=== PATIENT | male | born 1940 | race Caucasian/White ===

== ENCOUNTER → 2016-12-22 | Outpatient (CLI) | payer OTHER, MEDICARE | LOC: MW.RT 19:49 | CPT/HCPCS: 95810 ==

== ENCOUNTER 2017-06-01 21:16 | Inpatient (IN) | payer MEDICARE, OTHER ==
[2017-06-01] MEDS ORDERED: Sodium Chloride 0.9% 2.5 ML Syringe FLUSH PRN (21:25)
[2017-06-01] MEDS ORDERED: Sodium Chloride 0.9% 10 ML Syringe FLUSH PRN (21:25)
[2017-06-01] MEDS ORDERED: Sodium Chloride 0.9% 1,000 ML IV ONE (21:25)
--- NOTE | 2017-06-01 21:31 | EDM.PDOC ---
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 The patient lives at home alone and according to EMS his home was very unkempt. The patient states he takes his blood sugar 4 times a day and it was running a little on the lower side today but he has been eating normally without vomiting or diarrhea. He has not had fever chills cough chest pain shortness of breath abdominal pain or any systemic complaints until this afternoon with the lightheadedness. He did not pass out or blackout he did not hit his head and has no extremity pain. He has no focal weakness but has generalized weakness. 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 He says he has been drinking fluids but he might not have been doing as well as he thinks because he feels somewhat dehydrated. EMS started an IV and was giving him IV fluids and his blood pressure initially was 69/51 but after 500 mL it was already coming up to the 80s. His Accu-Chek was 69 per EMS and it was low for him so he ate some food. Initially the patient did not want to come via EMS but when his blood sugar was on the lower side and his blood pressure was low he decided to come in. He does not have any home health or support services at home per EMS and the patient. Currently in the ED he denies any complaints other than generalized weakness and feeling somewhat lightheaded. The patient has been on chemotherapy proximally 6 months. Review of systems: As per history of present illness and below otherwise all systems reviewed and negative. Past medical history: As per history of present illness and as reviewed below otherwise noncontributory. Surgical history: As per history of present illness and as reviewed below otherwise noncontributory. Social history: No reported history of drug or alcohol abuse. Family history: As per history of present illness and as reviewed below otherwise noncontributory. Physical exam: Gen.: Well-developed thin man who is nontoxic and somewhat pale appearing but speaks clearly and easily and is in no overt distress. HEENT: Atraumatic, normocephalic, pupils reactive, negative for scleral icterus , conjunctiva are slightly pale mucous membranes dry, throat clear, neck supple , nontender, trachea midline. Lungs: Clear to auscultation, breath sounds equal bilaterally, chest nontender. Heart: S1S2, regular, negative for clicks, rubs, or JVD. Abdomen: Soft, nondistended, nontender. Negative for masses or hepatosplenomegaly. Negative for costovertebral tenderness. Pelvis: Stable nontender. Genitourinary: Deferred. Rectal: Deferred. Extremities: Atraumatic, negative for cords or calf pain. Neurovascular unremarkable. Bilateral AKA's are seen with well-healed scars. Neuro: Awake, alert, oriented. Cranial nerves II through XII unremarkable. Motor and sensory unremarkable throughout. Exam nonfocal. Skin: Turgor slightly diminished and there are chronic skin changes on his forearms but there are no overt rashes or lesions. There are some scab seen from old injuries but nothing new. Diagnostics: EKG CBC CMP lactic acid UA urine culture blood cultures troponin CPK chest x-ray Therapeutics: IV O2 monitor IV fluids D50 2207: Accu-Chek was repeated by staff and it was 41. Patient will be given and amp D50 [id number]: Patient was unable to urinate as he did not feel the urge. He has received 1800 mL of IV fluids and pressure is in the 70s. The patient was cathed by nursing and he only produces 15 sees of urine. We will continue to fluid resuscitate him. Case was discussed with our hospitalist Dr. Freire who agrees with continuing with fluid resuscitation and agrees with my suggestion to start low-dose dopamine. He is aware of the antibiotics and I will follow-up the UA results. The patient is agreeable for admission and he will go to the ICU. The patient has a port as well as a peripheral line for good IV access Critical care time excluding procedures:31min Impression: Dehydration with hypotension, rule out sepsis, history of chemotherapy and diabetes, hypoglycemia improving Definitive disposition and diagnosis as appropriate pending reevaluation and review of above. Chronic Back Pain Pain Score (Numeric/FACES): 6 - Related Data Allergies Allergy/AdvReac Type Severity Reaction Status Date / Time codeine Allergy Intermediate Confusion Verified 06/01/17 21:32 cologne Allergy Other Uncoded 06/01/17 21:32 Hayfever Allergy Other Uncoded 06/01/17 21:32 Home Meds: Home Meds Acetaminophen [Masophen] 500 mg PO QID 12/11/14 [History] Aspirin 325 mg PO DAILY 12/11/14 [History] Gabapentin [Neurontin] 600 mg PO QID 12/11/14 [History] traMADol [Ultram] 50 mg PO QID 12/11/14 [History] Cyanocobalamin (Vitamin B-12) [Vitamin B-12] 1 injection IM ASDIRECTED 01/14/15 [History] Docusate Sodium [Colace] 500 mg PO BID 01/14/15 [History] Multivitamin [Multivitamins] 1 tab PO DAILY 01/14/15 [History] Sertraline [Zoloft] 50 mg PO DAILY 01/14/15 [History] Iron 65 mg PO BID 06/22/16 [History] Vit C/Dietary Combo NO.18 [Red Wine Extract Plus] 1,000 mg PO BID 06/22/16 [ History] Fluticasone Propionate [Flonase Allergy Relief] 1 dose NASBOTH ASDIRECTED PRN [History] Urea 1 applic TOP ASDIRECTED 08/26/16 [History] Insulin Aspart Protam & Aspart [Novolog Mix 70-30 Flexpen Syrn] 1 injection PERCUT ASDIRECTED 11/05/16 [History] Lisinopril 5 mg PO DAILY 11/05/16 [History] Past Medical History HEENT History: Reports: Cataract, Hard of Hearing Other HEENT History: wears glasses, has bilateral hearing aides Cardiovascular History: Reports: Angina Other Cardiovascular History: denies chest pain and SOB Respiratory History: Reports: COPD, Sleep Apnea Other Respiratory History: not currently using CPAP Gastrointestinal History: Reports: GERD, Hiatal Hernia Other Gastrointestinal History: Chronic Heartburn ("used to take Nexium, quit working so I stopped") Genitourinary History: Reports: BPH, UTI, Recurrent Other Genitourinary History: Enlarged prostate Musculoskeletal History: Reports: Back Pain, Chronic, Fracture Other Musculoskeletal History: hx of fx right arm and left shoulder/ clavicle Neurological History: Reports: Concussion Other Neuro History: 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 Psychiatric History: Reports: Anxiety, Depression Endocrine/Metabolic History: Reports: Diabetes, Type II Hematologic History: Reports: Anemia, Blood Transfusion(s) Other Hematologic History: easy bruising/bleeding Immunologic History: Reports: None Other Immunologic History: Positive MRSA Oncologic (Cancer) History: Reports: Leukemia, Other (See Below) Other Oncologic History: removal of skin cancer on forehead x2, "possible leukemia" Dermatologic History: Reports: Other (See Below) Other Dermatologic History: has dry skin, "pimple like sores to stumps and buttocks" not open or draining, states he "thinks he has MRSA" as he has had nasal swab in the past and was told it was positive - Infectious Disease History Infectious Disease History: Reports: MRSA - Past Surgical History Cardiovascular Surgical History: Reports: Coronary Artery Stent GI Surgical History: Reports: Other (See Below) Neurological Surgical History: Reports: Other (See Below) Social & Family History - Family History Family Medical History: Noncontributory Cardiac: Reports: None - Tobacco Use Smoking Status *Q: Former Smoker Years of Tobacco use: 37 Used Tobacco, but Quit: Yes Month Tobacco Last Used: quit smoking Aug 27, 1997 Second Hand Smoke Exposure: No - Alcohol Use Days Per Week of Alcohol Use: 0 Number of Drinks Per Day: 0 Total Drinks Per Week: 0 - Recreational Drug Use Recreational Drug Use: No Drug Use in Last 12 Months: No ED ROS GENERAL - Review of Systems Review Of Systems: ROS reveals no pertinent complaints other than HPI. ED EXAM, GENERAL - Physical Exam Exam: See Below (See dictation) Course - Vital Signs Last Recorded V/S: Last Vital Signs Temp 36.1 C 06/01/17 21:16 Pulse 98 06/01/17 22:39 Resp 16 06/01/17 22:39 BP 74/39 L 06/01/17 22:39 Pulse Ox 98 06/01/17 22:39 - Orders/Labs/Meds Orders: Active Orders 24 hr Category Date Time Status Blood Glucose Check, Bedside [RC] ONETIME Care 06/01/17 21:24 Active Cardiac Monitoring [RC] . DIRECTED Care 06/01/17 21:23 Active Communication Order [RC] STAT Care 06/01/17 21:25 Active EKG Documentation Completion [RC] STAT Care 06/01/17 21:23 Active Implanted Port Access [RC] DAILY Care 06/01/17 21:53 Active Oxygen Therapy, ED [RC] ASDIRECTED Care 06/01/17 21:23 Active Pulse Oximetry [RC] ASDIRECTED Care 06/01/17 21:23 Active Chest 1V Frontal [CR] Stat Exams 06/01/17 21:25 Taken CULTURE BLOOD [BC] Stat Lab 06/01/17 21:42 Received CULTURE BLOOD [BC] Stat Lab 06/01/17 22:07 Received CULTURE URINE [RM] Stat Lab 06/01/17 21:24 Uncollected UA W/MICROSCOPIC [URIN] Stat Lab 06/01/17 21:24 Uncollected Piperacillin/Tazobactam [Piperacil-Tazobact] 3.375 gm Med 06/01/17 22:55 Active Sodium Chloride 0.9% [Normal Saline] 50 ml IV ONETIME Sodium Chloride 0.9% [Normal Saline] 1,000 ml Med 06/01/17 22:45 Active IV ASDIRECTED Sodium Chloride 0.9% [Saline Flush] Med 06/01/17 21:25 Active 10 ml FLUSH ASDIRECTED PRN Sodium Chloride 0.9% [Saline Flush] Med 06/01/17 21:25 Active 2.5 ml FLUSH ASDIRECTED PRN Blood Culture x2 Reflex Set [OM.PC] Stat Oth 06/01/17 21:24 Ordered Saline Lock Insert [OM.PC] Stat Oth 06/01/17 21:23 Ordered Medication Orders Piperacillin Sod/Tazobactam (Sod 3.375 gm/ Sodium Chloride) 50 mls @ 100 mls/ hr IV ONETIME ONE Stop: 06/01/17 23:24 Sodium Chloride (Normal Saline) 1,000 mls @ 999 mls/hr IV ASDIRECTED JEWELL Last Admin: 06/01/17 22:45 Dose: 999 mls/hr Sodium Chloride (Saline Flush) 10 ml FLUSH ASDIRECTED PRN PRN Reason: Keep Vein Open Sodium Chloride (Saline Flush) 2.5 ml FLUSH ASDIRECTED PRN PRN Reason: Keep Vein Open Labs: Laboratory Tests 07/25/17 07/25/17 07/25/17 Range/Units 21:42 21:42 21:42 WBC 5.84 (4.0-11.0) K/uL RBC 2.69 L (4.50-5.90) M/uL Hgb 9.6 L (13.0-17.0) g/dL Hct 30.7 L (38.0-50.0) % MCV 114.1 H (80.0-98.0) fL MCH 35.7 H (27.0-32.0) pg MCHC 31.3 (31.0-37.0) g/dL RDW Std Deviation 65.4 H (28.0-62.0) fl RDW Coeff of Matt 16 H (11.0-15.0) % Plt Count 389 (150-400) K/uL MPV 10.90 (7.40-12.00) fL Add Manual Diff YES Neutrophils % (Manual) 68 (48.0-80.0) % Band Neutrophils % 10 % Lymphocytes % (Manual) 16 (16.0-40.0) % Monocytes % (Manual) 6 (0.0-15.0) % Nucleated RBC % 0.0 /100WBC Absolute Seg Neuts 4.0 Band Neutrophils # 0.6 Lymphocytes # (Manual) 0.9 Monocytes # (Manual) 0.4 Nucleated RBCs # 0 K/uL Lactate 2.9 H (0.20-2.00) mmol/L Sodium 144 (136-146) mmol/L Potassium 3.9 (3.5-5.1) mmol/L Chloride 108 (98-110) mmol/L Carbon Dioxide 24 (21-31) mmol/L BUN 16 (6.0-23.0) mg/dL Creatinine 1.0 (0.6-1.5) mg/dL Est Cr Clr Drug Dosing TNP Estimated GFR (MDRD) > 60.0 ml/min Glucose 69 (60-110) mg/dL POC Glucose (60-110) mg/dL Calcium 9.0 (8.8-10.8) mg/dL Total Bilirubin 0.3 (0.1-1.5) mg/dL AST 20 (5-40) IU/L ALT 24 (8-54) IU/L Alkaline Phosphatase 103 (40-150) Creatine Kinase 91 (9-236) IU/L Troponin I (0.0-0.29) NG/ML Total Protein 6.9 (6.0-8.0) g/dL Albumin 3.5 (3.4-4.8) g/dL Globulin 3.4 (2.0-3.5) g/dL Albumin/Globulin Ratio 1.0 L (1.3-2.8) Blood Type Antibody Screen 06/01/17 06/01/17 06/01/17 Range/Units 21:42 21:42 22:07 WBC (4.0-11.0) K/uL RBC (4.50-5.90) M/uL Hgb (13.0-17.0) g/dL Hct (38.0-50.0) % MCV (80.0-98.0) fL MCH (27.0-32.0) pg MCHC (31.0-37.0) g/dL RDW Std Deviation (28.0-62.0) fl RDW Coeff of Matt (11.0-15.0) % Plt Count (150-400) K/uL MPV (7.40-12.00) fL Add Manual Diff Neutrophils % (Manual) (48.0-80.0) % Band Neutrophils % % Lymphocytes % (Manual) (16.0-40.0) % Monocytes % (Manual) (0.0-15.0) % Nucleated RBC % /100WBC Absolute Seg Neuts Band Neutrophils # Lymphocytes # (Manual) Monocytes # (Manual) Nucleated RBCs # K/uL Lactate (0.20-2.00) mmol/L Sodium (136-146) mmol/L Potassium (3.5-5.1) mmol/L Chloride (98-110) mmol/L Carbon Dioxide (21-31) mmol/L BUN (6.0-23.0) mg/dL Creatinine (0.6-1.5) mg/dL Est Cr Clr Drug Dosing Estimated GFR (MDRD) ml/min Glucose (60-110) mg/dL POC Glucose 41 L (60-110) mg/dL Calcium (8.8-10.8) mg/dL Total Bilirubin (0.1-1.5) mg/dL AST (5-40) IU/L ALT (8-54) IU/L Alkaline Phosphatase (40-150) Creatine Kinase (9-236) IU/L Troponin I < 0.10 (0.0-0.29) NG/ML Total Protein (6.0-8.0) g/dL Albumin (3.4-4.8) g/dL Globulin (2.0-3.5) g/dL Albumin/Globulin Ratio (1.3-2.8) Blood Type O POSITIVE Antibody Screen NEGATIVE 06/01/17 Range/Units 23:00 WBC (4.0-11.0) K/uL RBC (4.50-5.90) M/uL Hgb (13.0-17.0) g/dL Hct (38.0-50.0) % MCV (80.0-98.0) fL MCH (27.0-32.0) pg MCHC (31.0-37.0) g/dL RDW Std Deviation (28.0-62.0) fl RDW Coeff of Matt (11.0-15.0) % Plt Count (150-400) K/uL MPV (7.40-12.00) fL Add Manual Diff Neutrophils % (Manual) (48.0-80.0) % Band Neutrophils % % Lymphocytes % (Manual) (16.0-40.0) % Monocytes % (Manual) (0.0-15.0) % Nucleated RBC % /100WBC Absolute Seg Neuts Band Neutrophils # Lymphocytes # (Manual) Monocytes # (Manual) Nucleated RBCs # K/uL Lactate (0.20-2.00) mmol/L Sodium (136-146) mmol/L Potassium (3.5-5.1) mmol/L Chloride (98-110) mmol/L Carbon Dioxide (21-31) mmol/L BUN (6.0-23.0) mg/dL Creatinine (0.6-1.5) mg/dL Est Cr Clr Drug Dosing Estimated GFR (MDRD) ml/min Glucose (60-110) mg/dL POC Glucose 182 H (60-110) mg/dL Calcium (8.8-10.8) mg/dL Total Bilirubin (0.1-1.5) mg/dL AST (5-40) IU/L ALT (8-54) IU/L Alkaline Phosphatase (40-150) Creatine Kinase (9-236) IU/L Troponin I (0.0-0.29) NG/ML Total Protein (6.0-8.0) g/dL Albumin (3.4-4.8) g/dL Globulin (2.0-3.5) g/dL Albumin/Globulin Ratio (1.3-2.8) Blood Type Antibody Screen Meds: Medications Generic Name Dose Route Start Last Admin Trade Name Freq PRN Reason Stop Dose Admin Piperacillin Sod/Tazobactam 50 mls @ 100 mls/hr 06/01/17 22:55 Sod 3.375 gm/ Sodium Chloride IV 06/01/17 23:24 ONETIME ONE Sodium Chloride 1,000 mls @ 999 mls/hr 06/01/17 22:45 06/01/17 22:45 Normal Saline IV 999 mls/hr ASDIRECTED JEWELL Administration Sodium Chloride 10 ml 06/01/17 21:25 Saline Flush FLUSH ASDIRECTED PRN Keep Vein Open Sodium Chloride 2.5 ml 06/01/17 21:25 Saline Flush FLUSH ASDIRECTED PRN Keep Vein Open Discontinued Medications Generic Name Dose Route Start Last Admin Trade Name Freq PRN Reason Stop Dose Admin Dextrose/Water 50 ml 06/01/17 22:09 06/01/17 22:09 Dextrose 50% In Water IVPUSH 06/01/17 22:10 50 ml ONETIME ONE Administration Sodium Chloride 1,000 mls @ 999 mls/hr 06/01/17 21:25 06/01/17 21:25 Normal Saline IV 06/01/17 22:25 999 mls/hr STAT ONE Administration Departure - Departure Time of Disposition: 23:22 Disposition: Admitted As Inpatient 67 Condition: Good Clinical Impression: Dehydration, Hypoglycemia Hypotension Qualifiers: Hypotension type: unspecified hypotension type Qualified Code(s): I95.9 - Hypotension, unspecified - Discharge Information - My Orders Last 24 Hours: My Active Orders 06/01/17 21:23 Cardiac Monitoring [RC] . DIRECTED EKG Documentation Completion [RC] STAT Oxygen Therapy, ED [RC] ASDIRECTED Pulse Oximetry [RC] ASDIRECTED Saline Lock Insert [OM.PC] Stat 06/01/17 21:24 Blood Glucose Check, Bedside [RC] ONETIME CULTURE URINE [RM] Stat UA W/MICROSCOPIC [URIN] Stat Blood Culture x2 Reflex Set [OM.PC] Stat 06/01/17 21:25 Communication Order [RC] STAT Chest 1V Frontal [CR] Stat Sodium Chloride 0.9% [Saline Flush] 10 ml FLUSH ASDIRECTED PRN Sodium Chloride 0.9% [Saline Flush] 2.5 ml FLUSH ASDIRECTED PRN 06/01/17 21:42 CULTURE BLOOD [BC] Stat 06/01/17 21:53 Implanted Port Access [RC] DAILY 06/01/17 22:07 CULTURE BLOOD [BC] Stat 06/01/17 22:45 Sodium Chloride 0.9% [Normal Saline] 1,000 ml IV ASDIRECTED 06/01/17 22:55 Piperacillin/Tazobactam [Piperacil-Tazobact] 3.375 gm Sodium Chloride 0.9% [ Normal Saline] 50 ml IV ONETIME - Assessment/Plan Last 24 Hours: My Active Orders 06/01/17 21:23 Cardiac Monitoring [RC] . DIRECTED EKG Documentation Completion [RC] STAT Oxygen Therapy, ED [RC] ASDIRECTED Pulse Oximetry [RC] ASDIRECTED Saline Lock Insert [OM.PC] Stat 06/01/17 21:24 Blood Glucose Check, Bedside [RC] ONETIME CULTURE URINE [RM] Stat UA W/MICROSCOPIC [URIN] Stat Blood Culture x2 Reflex Set [OM.PC] Stat 06/01/17 21:25 Communication Order [RC] STAT Chest 1V Frontal [CR] Stat Sodium Chloride 0.9% [Saline Flush] 10 ml FLUSH ASDIRECTED PRN Sodium Chloride 0.9% [Saline Flush] 2.5 ml FLUSH ASDIRECTED PRN 06/01/17 21:42 CULTURE BLOOD [BC] Stat 06/01/17 21:53 Implanted Port Access [RC] DAILY 06/01/17 22:07 CULTURE BLOOD [BC] Stat 06/01/17 22:45 Sodium Chloride 0.9% [Normal Saline] 1,000 ml IV ASDIRECTED 06/01/17 22:55 Piperacillin/Tazobactam [Piperacil-Tazobact] 3.375 gm Sodium Chloride 0.9% [ Normal Saline] 50 ml IV ONETIME
[2017-06-01] MEDS ORDERED: 50% Dextrose in Water 50 ML Syringe IVPUSH ONE (22:09)
[2017-06-01 22:18] LABS: CHLORIDE,CL 108 mmol/L (98-110); SODIUM,NA 144 mmol/L (136-146)
[2017-06-01] MEDS ORDERED: Sodium Chloride 0.9% 1,000 ML IV SCH ×2 (22:45→23:30)
[2017-06-01] MEDS ORDERED: Piperacillin/Tazobactam 3.375 GM in Sodium Chloride 0.9% 50 ML IV ONE (22:55)
[2017-06-02] MEDS: DOPamine/Dextrose 5%-Water 400 MG/250 ML BAG IV SCH ×2 (00:10→10:28)
[2017-06-02] MEDS ORDERED: Piperacillin/Tazobactam 3.375 GM in Sodium Chloride 0.9% 50 ML IV SCH ×2 (01:45→03:00)
--- NOTE | 2017-06-02 01:56 | PCM.HP ---
H&P History of Present Illness - History of Present Illness Initial Comments - Free Text/Narative: 76 yo male with pmh of diabetes on insulin pump with bilateral AKA who currently undergoing chemotherapy for leukemia presents with several hours history of dizziness. EMS noted him to be hypotensive and hypglycemia with BP of 60 systolic and blood glucose of 40. In the ED he did not complain of any focal symptoms. He was given an amp of D50 and three liters of NS. As his blood pressure remained low he was started on a dopamine drip. He was given zosyn for UTI. Chronic Back Pain Pain Score (Numeric/FACES): 6 - Related Data Allergies/Adverse Reactions: Allergies Allergy/AdvReac Type Severity Reaction Status Date / Time codeine Allergy Intermediate Confusion Verified 06/01/17 21:32 cologne Allergy Other Uncoded 06/01/17 21:32 Hayfever Allergy Other Uncoded 06/01/17 21:32 Home Medications: Home Meds Acetaminophen [Masophen] 1,000 mg PO TID PRN 12/11/14 [History] Aspirin 325 mg PO DAILY 12/11/14 [History] Gabapentin [Neurontin] 600 mg PO QID 12/11/14 [History] traMADol [Ultram] 50 mg PO QID 12/11/14 [History] Docusate Sodium [Colace] 100 mg PO BID 01/14/15 [History] Multivitamin [Multivitamins] 1 tab PO DAILY 01/14/15 [History] Sertraline [Zoloft] 50 mg PO DAILY 01/14/15 [History] Insulin Aspart Protam & Aspart [Novolog Mix 70-30 Flexpen Syrn] 0 units SUBCUT DAILY 11/05/16 [History] Lisinopril 5 mg PO DAILY 11/05/16 [History] Baclofen 10 mg PO TID 06/02/17 [History] Cyanocobalamin (Vitamin B12) [Vitamin B12] 1,000 mcg IM Q30D 06/02/17 [History] Fluconazole [Diflucan] 200 mg PO Q7D 06/02/17 [History] Ondansetron HCl [Ondansetron] 8 mg PO TID PRN 06/02/17 [History] Prochlorperazine Maleate [Compazine] 10 mg PO Q4H PRN 06/02/17 [History] buPROPion HCl [Wellbutrin Xl] 300 mg PO DAILY 06/02/17 [History] Past Medical History HEENT History: Reports: Cataract, Hard of Hearing Other HEENT History: wears glasses, has bilateral hearing aides Cardiovascular History: Reports: Angina Other Cardiovascular History: denies chest pain and SOB Respiratory History: Reports: COPD, Sleep Apnea Other Respiratory History: not currently using CPAP Gastrointestinal History: Reports: GERD, Hiatal Hernia Other Gastrointestinal History: Chronic Heartburn ("used to take Nexium, quit working so I stopped") Genitourinary History: Reports: BPH, UTI, Recurrent Other Genitourinary History: Enlarged prostate Musculoskeletal History: Reports: Back Pain, Chronic, Fracture Other Musculoskeletal History: hx of fx right arm and left shoulder/ clavicle Neurological History: Reports: Concussion Other Neuro History: 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 Psychiatric History: Reports: Anxiety, Depression Endocrine/Metabolic History: Reports: Diabetes, Type II Hematologic History: Reports: Anemia, Blood Transfusion(s) Other Hematologic History: easy bruising/bleeding Immunologic History: Reports: None Other Immunologic History: Positive MRSA Oncologic (Cancer) History: Reports: Leukemia, Other (See Below) Other Oncologic History: removal of skin cancer on forehead x2, "possible leukemia" Dermatologic History: Reports: Other (See Below) Other Dermatologic History: has dry skin, "pimple like sores to stumps and buttocks" not open or draining, states he "thinks he has MRSA" as he has had nasal swab in the past and was told it was positive - Infectious Disease History Infectious Disease History: Reports: MRSA - Past Surgical History Cardiovascular Surgical History: Reports: Coronary Artery Stent GI Surgical History: Reports: Other (See Below) Neurological Surgical History: Reports: Other (See Below) Social & Family History - Family History Family Medical History: Noncontributory Cardiac: Reports: None - Tobacco Use Smoking Status *Q: Former Smoker Years of Tobacco use: 37 Used Tobacco, but Quit: Yes Month Tobacco Last Used: quit smoking Aug 27, 1997 Second Hand Smoke Exposure: No - Alcohol Use Days Per Week of Alcohol Use: 0 Number of Drinks Per Day: 0 Total Drinks Per Week: 0 - Recreational Drug Use Recreational Drug Use: No Drug Use in Last 12 Months: No H&P Review of Systems - Review of Systems: Review Of Systems: ROS reveals no pertinent complaints other than HPI. Exam - Exam Exam: See Below - Vital Signs Vital Signs: Last Vital Signs Temp 36.2 C 06/02/17 00:36 Pulse 84 06/02/17 00:36 Resp 16 06/02/17 00:36 BP 107/58 L 06/02/17 00:36 Pulse Ox 96 06/02/17 00:36 Weight: 82 kg - Exam General: Alert, Cooperative Lungs: Clear to Auscultation, Normal Respiratory Effort Cardiovascular: Regular Rate, Regular Rhythm GI/Abdominal Exam: Normal Bowel Sounds, Soft, Non-Tender, No Organomegaly, No Distention, No Abnormal Bruit, No Mass, Pelvis Stable Extremities: Other (bilateral AKA) Skin: Warm, Dry, Intact - Patient Data Result Diagrams: 06/02/17 03:00 06/02/17 03:00 *Q Meaningful Use (ADM) - VTE *Q VTE Criteria *Q: - Stroke *Q Stroke Criteria *Q: - AMI *Q AMI Criteria *Q: Problem List Initiated/Reviewed/Updated: Yes Orders Last 24hrs: Active Orders 24 hr Category Date Time Status Intake and Output [RC] QSHIFT Care 06/02/17 01:45 Ordered Oxygen Therapy [RC] PRN Care 06/02/17 01:44 Ordered Up ad Nataliia [RC] ASDIRECTED Care 06/02/17 01:44 Ordered VTE/DVT Education [RC] PER UNIT ROUTINE Care 06/02/17 01:44 Ordered Vital Signs [RC] Q4H Care 06/02/17 01:44 Ordered [employer] Diet [DIET] Diet 06/02/17 Breakfast Ordered BASIC METABOLIC PANEL,BMP [CHEM] AM Lab 06/02/17 05:11 Ordered CBC WITH AUTO DIFF [HEME] AM Lab 06/02/17 05:11 Ordered LACTIC ACID,WHOLE BLOOD [BG] Q6H Lab 06/02/17 03:00 Ordered LACTIC ACID,WHOLE BLOOD [BG] Q6H Lab 06/02/17 09:00 Ordered LACTIC ACID,WHOLE BLOOD [BG] Q6H Lab 06/02/17 15:00 Ordered LACTIC ACID,WHOLE BLOOD [BG] Q6H Lab 06/02/17 21:00 Ordered Enoxaparin [Lovenox] Med 06/02/17 09:00 Ordered 40 mg SUBCUT DAILY Insulin Aspart [NovoLOG] Med 06/02/17 07:30 Ordered See Protocol SUBCUT TIDAC Piperacillin/Tazobactam [Piperacil-Tazobact] 3.375 gm Med 06/02/17 01:45 Ordered Sodium Chloride 0.9% [Normal Saline] 50 ml IV Q6H Sodium Chloride 0.9% @ 125 MLS/HR (1,000ml) Med 06/02/17 01:45 Ordered Sodium Chloride 0.9% [Normal Saline] 1,000 ml IV ASDIRECTED Resuscitation Status Routine Resus Stat 06/02/17 01:44 Ordered Medication Orders Enoxaparin Sodium (Lovenox) 40 mg SUBCUT DAILY [facility] Sodium Chloride (Normal Saline) 1,000 mls @ 999 mls/hr IV ASDIRECTED [facility] Last Admin: 06/01/17 22:45 Dose: 999 mls/hr Dopamine HCl/Dextrose (Dopamine In D5w 400 Mg/250 Ml) 400 mg in 250 mls @ 15.375 mls/hr IV TITRATE JEWE[facility]; 5 MCG/KG/MIN PRN Reason: Protocol Last Admin: 06/02/17 00:10 Dose: 5 mcg/kg/min, 15.375 mls/hr Sodium Chloride (Normal Saline) 1,000 mls @ 999 mls/hr IV ASDIRECTED [facility] Last Admin: 06/01/17 23:28 Dose: 999 mls/hr Piperacillin Sod/Tazobactam (Sod 3.375 gm/ Sodium Chloride) 50 mls @ 100 mls/ hr IV Q6H [facility] Sodium Chloride (Normal Saline) 1,000 mls @ 125 mls/hr IV ASDIRECTED [facility] Insulin Aspart (Novolog) 0 unit SUBCUT TIDAC [facility] PRN Reason: Protocol Sodium Chloride (Saline Flush) 10 ml FLUSH ASDIRECTED PRN PRN Reason: Keep Vein Open Sodium Chloride (Saline Flush) 2.5 ml FLUSH ASDIRECTED PRN PRN Reason: Keep Vein Open Assessment/Plan Comment:: 76 yo male who presents with hypotension, hypoglycemia, and UTI. Possible sepsis with septic shock but he does not appear very toxic on exam. Will continue fluid resuscitation and wean dopamine as tolerated. Treating UTI with zosyn. Will hold insulin pump and place on sliding scale insulin.
[2017-06-02] MEDS: Sodium Chloride 0.9% 1,000 ML IV SCH ×3 (02:16→22:06)
[2017-06-02 03:35] LABS: CHLORIDE,CL 110 mmol/L (98-110); SODIUM,NA 143 mmol/L (136-146)
[2017-06-02] MEDS: Piperacillin/Tazobactam 3.375 GM in Sodium Chloride 0.9% 50 ML IV SCH ×3 (05:35→17:35)
[2017-06-02] MEDS: Insulin Aspart 100 Units/ML 3 ML Pen SUBCUT SCH ×3 (06:55→17:33)
[2017-06-02] MEDS ORDERED: Acetaminophen 325 MG Tab PO PRN (07:57)
[2017-06-02] MEDS: Enoxaparin 40 MG/0.4 ML Syringe SUBCUT SCH (08:28)
--- NOTE | 2017-06-02 09:57 | CR ---
EXAM DATE: 06/01/17 PATIENT'S AGE: 76 Patient: HEATHER MEHTA Facility: [place], [place] Site . Site : [id number] Study: XRay Chest [id number]/25/2017 10:25:42 PM Ordering Physician: Darwin Perez Final Report: INDICATION: Pain, shortness of breath and lightheadedness TECHNIQUE: Chest 1 view. COMPARISON: 11/17/2016 FINDINGS: Cardiovascular and mediastinum: Heart size and vasculature are normal in caliber and appearance. Mediastinum is within normal limits. Right-sided subclavian line tip terminates in the proximal SVC. Lungs and pleural space: Lungs are clear. No sign of infiltrate or mass. No sign of pleural effusion. No pneumothorax. Bones and soft tissues: Spinal fixation hardware involving the lower cervical spine. IMPRESSION: No acute pulmonary or cardiac abnormalities. Dictated by Rikki Hernadez MD @ 06/01/2017 10:28:22 PM Dictated by: Rikki Hernadez MD @ 06/01/2017 22:28:25 (Electronic Signature) Report Signed by Proxy. [facility]
[2017-06-02] MEDS: Sertraline 50 MG Tab PO SCH (10:49)
[2017-06-02] MEDS: Gabapentin 300 MG Cap PO SCH ×2 (11:33→17:34)
[2017-06-02] MEDS: traMADol 50 MG Tab PO SCH ×2 (11:33→17:34)
[2017-06-02] MEDS: Baclofen 10 MG Tab PO SCH ×2 (13:59→21:43)
[2017-06-03] MEDS: Gabapentin 300 MG Cap PO SCH ×4 (00:03→17:09)
[2017-06-03] MEDS: traMADol 50 MG Tab PO SCH ×4 (00:03→17:09)
[2017-06-03] MEDS: Piperacillin/Tazobactam 3.375 GM in Sodium Chloride 0.9% 50 ML IV SCH ×2 (00:03→06:02)
[2017-06-03 05:45] LABS: CHLORIDE,CL 114 mmol/L (98-110); SODIUM,NA 143 mmol/L (136-146)
[2017-06-03] MEDS: Baclofen 10 MG Tab PO SCH ×3 (06:03→21:07)
[2017-06-03] MEDS ORDERED: Magnesium Sulfate/Water 4 GM in Premix Bag 1 BAG IV ONE (06:39)
[2017-06-03] MEDS: Insulin Aspart 100 Units/ML 3 ML Pen SUBCUT SCH ×3 (07:50→16:48)
[2017-06-03] MEDS: Sertraline 50 MG Tab PO SCH (08:19)
[2017-06-03] MEDS: buPROPion 150 MG Tab.ER PO SCH (08:19)
[2017-06-03] MEDS: Docusate Sodium 100 MG Cap PO SCH ×2 (08:19→21:07)
[2017-06-03] MEDS: Enoxaparin 40 MG/0.4 ML Syringe SUBCUT SCH (09:51)
[2017-06-03] MEDS: Aspirin 325 MG Tab PO SCH (09:51)
--- NOTE | 2017-06-03 10:16 | PCM.PN ---
- General Info Date of Service: 06/03/17 Subjective Update: No symptoms today. He ate breakfast. Did not have a bm and requesting stool softner. Functional Status: Reports: Tolerating Diet, Urinating - Review of Systems General: Reports: No Symptoms HEENT: Reports: No Symptoms Pulmonary: Reports: No Symptoms Cardiovascular: Reports: No Symptoms Gastrointestinal: Reports: No Symptoms Genitourinary: Reports: No Symptoms Musculoskeletal: Reports: No Symptoms Skin: Reports: No Symptoms, Rash Neurological: Reports: No Symptoms Psychiatric: Reports: No Symptoms - Patient Data Vitals - Most Recent: Last Vital Signs Temp 97.9 F 06/03/17 08:30 Pulse 77 06/02/17 12:00 Resp 22 H 06/03/17 09:00 BP 102/58 L 06/03/17 09:00 Pulse Ox 94 L 06/03/17 09:00 Weight - Most Recent: 79.4 kg I&O - Last 24 Hours: Intake & Output 06/02/17 06/03/17 06/03/17 22:59 06:59 14:59 Intake Total 2604 600 100 Output Total 1755 3800 Balance 849 -3200 100 Lab Results Last 24 Hours: Laboratory Results - last 24 hr 06/02/17 06/02/17 06/03/17 Range/Units 11:29 17:30 05:15 WBC 2.47 L (4.0-11.0) K/uL RBC 2.23 L (4.50-5.90) M/uL Hgb 7.9 L (13.0-17.0) g/dL Hct 25.3 L (38.0-50.0) % MCV 113.5 H (80.0-98.0) fL MCH 35.4 H (27.0-32.0) pg MCHC 31.2 (31.0-37.0) g/dL RDW Std Deviation 65.1 H (28.0-62.0) fl RDW Coeff of Matt 16 H (11.0-15.0) % Plt Count 237 (150-400) K/uL MPV 10.30 (7.40-12.00) fL Add Manual Diff YES Neutrophils % (Manual) 55 (48.0-80.0) % Band Neutrophils % 1 % Lymphocytes % (Manual) 33 (16.0-40.0) % Monocytes % (Manual) 8 (0.0-15.0) % Eosinophils % (Manual) 3 (0.0-7.0) % Nucleated RBC % 0.0 /100WBC Absolute Seg Neuts 1.4 Band Neutrophils # 0 Lymphocytes # (Manual) 0.8 Monocytes # (Manual) 0.2 Eosinophils # (Manual) 0.1 Nucleated RBCs # 0 K/uL Sodium (136-146) mmol/L Potassium (3.5-5.1) mmol/L Chloride (98-110) mmol/L Carbon Dioxide (21-31) mmol/L BUN (6.0-23.0) mg/dL Creatinine (0.6-1.5) mg/dL Est Cr Clr Drug Dosing Estimated GFR (MDRD) ml/min Glucose (60-110) mg/dL POC Glucose 227 H 241 H (60-110) mg/dL Calcium (8.8-10.8) mg/dL Phosphorus (2.4-4.7) mg/dL Magnesium (1.5-2.3) mEq/L 06/03/17 06/03/17 Range/Units 05:15 08:46 WBC (4.0-11.0) K/uL RBC (4.50-5.90) M/uL Hgb 8.9 L (13.0-17.0) g/dL Hct 28.6 L (38.0-50.0) % MCV (80.0-98.0) fL MCH (27.0-32.0) pg MCHC (31.0-37.0) g/dL RDW Std Deviation (28.0-62.0) fl RDW Coeff of Matt (11.0-15.0) % Plt Count (150-400) K/uL MPV (7.40-12.00) fL Add Manual Diff Neutrophils % (Manual) (48.0-80.0) % Band Neutrophils % % Lymphocytes % (Manual) (16.0-40.0) % Monocytes % (Manual) (0.0-15.0) % Eosinophils % (Manual) (0.0-7.0) % Nucleated RBC % /100WBC Absolute Seg Neuts Band Neutrophils # Lymphocytes # (Manual) Monocytes # (Manual) Eosinophils # (Manual) Nucleated RBCs # K/uL Sodium 143 (136-146) mmol/L Potassium 3.5 (3.5-5.1) mmol/L Chloride 114 H (98-110) mmol/L Carbon Dioxide 23 (21-31) mmol/L BUN 6 (6.0-23.0) mg/dL Creatinine 0.6 (0.6-1.5) mg/dL Est Cr Clr Drug Dosing TNP Estimated GFR (MDRD) > 60.0 ml/min Glucose 113 H (60-110) mg/dL POC Glucose (60-110) mg/dL Calcium 7.9 L (8.8-10.8) mg/dL Phosphorus 2.6 (2.4-4.7) mg/dL Magnesium 1.1 L (1.5-2.3) mEq/L Med Orders - Current: Current Medications Acetaminophen (Tylenol) 650 mg PO Q6H PRN PRN Reason: Pain/Fever Last Admin: 06/02/17 08:52 Dose: 650 mg Aspirin (Aspirin) 325 mg PO DAILY [facility] Last Admin: 06/03/17 09:51 Dose: 325 mg Baclofen (Lioresal) 10 mg PO TID [facility] Last Admin: 06/03/17 06:03 Dose: 10 mg Bupropion HCl (Wellbutrin Xl) 300 mg PO DAILY [facility] Last Admin: 06/03/17 08:19 Dose: 300 mg Docusate Sodium (Colace) 100 mg PO BID [facility] Last Admin: 06/03/17 08:19 Dose: 100 mg Enoxaparin Sodium (Lovenox) 40 mg SUBCUT DAILY [facility] Last Admin: 06/03/17 09:51 Dose: 40 mg Gabapentin (Neurontin) 600 mg PO QID [facility] Last Admin: 06/03/17 06:02 Dose: 600 mg Sodium Chloride (Normal Saline) 1,000 mls @ 125 mls/hr IV ASDIRECTED [facility] Last Admin: 06/02/17 22:06 Dose: 125 mls/hr Piperacillin Sod/Tazobactam (Sod 3.375 gm/ Sodium Chloride) 50 mls @ 100 mls/ hr IV Q6H [facility] Last Admin: 06/03/17 06:02 Dose: 100 mls/hr Vancomycin HCl 1,250 mg/ (Sodium Chloride) 250 mls @ 250 mls/hr IV Q12H [facility] Last Admin: 06/03/17 09:52 Dose: 250 mls/hr Insulin Aspart (Novolog) 0 unit SUBCUT TIDAC [facility] PRN Reason: Protocol Last Admin: 06/03/17 07:50 Dose: Not Given Sertraline HCl (Zoloft) 50 mg PO DAILY [facility] Last Admin: 06/03/17 08:19 Dose: 50 mg Sodium Chloride (Saline Flush) 10 ml FLUSH ASDIRECTED PRN PRN Reason: Keep Vein Open Sodium Chloride (Saline Flush) 2.5 ml FLUSH ASDIRECTED PRN PRN Reason: Keep Vein Open Tramadol HCl (Ultram) 50 mg PO QID [facility] Last Admin: 06/03/17 06:02 Dose: 50 mg Vancomycin HCl (Pharmacy To Dose - Vancomycin) 1 dose .XX ASDIRECTED [facility] Discontinued Medications Dextrose/Water (Dextrose 50% In Water) 50 ml IVPUSH ONETIME ONE Stop: 06/01/17 22:10 Last Admin: 06/01/17 22:09 Dose: 50 ml Sodium Chloride (Normal Saline) 1,000 mls @ 999 mls/hr IV STAT ONE Stop: 06/01/17 22:25 Last Admin: 06/01/17 21:25 Dose: 999 mls/hr Piperacillin Sod/Tazobactam (Sod 3.375 gm/ Sodium Chloride) 50 mls @ 100 mls/ hr IV ONETIME ONE Stop: 06/01/17 23:24 Last Admin: 06/01/17 23:28 Dose: 100 mls/hr Sodium Chloride (Normal Saline) 1,000 mls @ 999 mls/hr IV ASDIRECTED [facility] Last Admin: 06/01/17 22:45 Dose: 999 mls/hr Dopamine HCl/Dextrose (Dopamine In D5w 400 Mg/250 Ml) 400 mg in 250 mls @ 15.375 mls/hr IV TITRATE JEWELL; 5 MCG/KG/MIN PRN Reason: Protocol Last Titration: 06/02/17 18:25 Dose: 0 mcg/kg/min, 0 mls/hr Sodium Chloride (Normal Saline) 1,000 mls @ 999 mls/hr IV ASDIRECTED [facility] Last Admin: 06/01/17 23:28 Dose: 999 mls/hr Piperacillin Sod/Tazobactam (Sod 3.375 gm/ Sodium Chloride) 50 mls @ 100 mls/ hr IV Q6H [facility] Last Admin: 06/02/17 02:57 Dose: Not Given Piperacillin Sod/Tazobactam (Sod 3.375 gm/ Sodium Chloride) 50 mls @ 100 mls/ hr IV Q6H [facility] Magnesium Sulfate 4 gm/ Premix 100 mls @ 50 mls/hr IV ONETIME ONE Stop: 06/03/17 08:38 Last Admin: 06/03/17 07:36 Dose: 50 mls/hr - Exam General: Alert, Oriented HEENT: Pupils Equal, EOMI Lungs: Clear to Auscultation, Normal Respiratory Effort Cardiovascular: Regular Rate, Regular Rhythm GI/Abdominal Exam: Normal Bowel Sounds, Soft Back Exam: Normal Inspection Extremities: Other (BKA) - Problem List Review Problem List Initiated/Reviewed/Updated: Yes - My Orders Last 24 Hours: My Active Orders 06/03/17 09:00 Docusate Sodium [Colace] 100 mg PO BID 06/04/17 05:11 BASIC METABOLIC PANEL,BMP [CHEM] AM CBC WITH AUTO DIFF [HEME] AM MAGNESIUM [CHEM] AM PHOSPHORUS [CHEM] AM 06/05/17 05:11 BASIC METABOLIC PANEL,BMP [CHEM] AM CBC WITH AUTO DIFF [HEME] AM MAGNESIUM [CHEM] AM PHOSPHORUS [CHEM] AM - Plan Plan:: 76 yo male who presents with hypotension, hypoglycemia, and UTI. Hypomagnesium: replaced today HB 7.9 repeated again this am. 8.9 UTI: urine culture is providencia rettgeri: sensitive to PO bactrim DM: on ISS On IVF 125 ml/hr Constipation: start colace. in service educator consulted: recommended to restart insulin pump tonight: daughter will bring the pump. continue low dose ISS novolog transfer to Floor. anticipate discharge tomorrow.
[2017-06-03] MEDS ORDERED: Sulfamethoxazole/Trimethoprim 800-160 MG Tab PO SCH (10:45)
[2017-06-03] MEDS ORDERED: Ciprofloxacin 500 MG Tab PO SCH (10:45)
[2017-06-03] MEDS: Ciprofloxacin 250 MG Tab PO SCH ×2 (11:22→21:07)
[2017-06-03] MEDS: Sodium Chloride 0.9% 1,000 ML IV SCH ×2 (11:42→19:53)
[2017-06-03] MEDS ORDERED: 50% Dextrose in Water 50 ML Syringe ONE ×2 (19:33→21:53)
[2017-06-03] MEDS ORDERED: 50% Dextrose in Water 50 ML Syringe IVPUSH ONE (19:37)
[2017-06-03] MEDS ORDERED: 50% Dextrose in Water 50 ML Syringe IVPUSH STA (21:51)
[2017-06-04] MEDS: Gabapentin 300 MG Cap PO SCH ×3 (00:13→11:17)
[2017-06-04] MEDS: traMADol 50 MG Tab PO SCH ×3 (00:13→11:17)
[2017-06-04] MEDS: Sodium Chloride 0.9% 1,000 ML IV SCH ×2 (04:01→13:28)
[2017-06-04] MEDS: Baclofen 10 MG Tab PO SCH ×2 (05:33→13:22)
[2017-06-04 06:21] LABS: CHLORIDE,CL 112 mmol/L (98-110); SODIUM,NA 141 mmol/L (136-146)
[2017-06-04] MEDS: Aspirin 325 MG Tab PO SCH (08:05)
[2017-06-04] MEDS: Enoxaparin 40 MG/0.4 ML Syringe SUBCUT SCH (08:06)
[2017-06-04] MEDS: Docusate Sodium 100 MG Cap PO SCH (08:07)
[2017-06-04] MEDS: buPROPion 150 MG Tab.ER PO SCH (08:07)
[2017-06-04] MEDS: Sertraline 50 MG Tab PO SCH (08:07)
[2017-06-04] MEDS: Ciprofloxacin 250 MG Tab PO SCH (08:07)
--- NOTE | 2017-06-04 09:17 | PCM.PN ---
- General Info Date of Service: 06/04/17 Subjective Update: He resumed insulin pump and miscalculated carb count where he was shaking. accucheck below 29. He was given 2 amps of D50. insulin pump was detached. Functional Status: Reports: Pain Controlled, Tolerating Diet - Review of Systems General: Reports: No Symptoms HEENT: Reports: No Symptoms Pulmonary: Reports: No Symptoms Cardiovascular: Reports: No Symptoms Gastrointestinal: Reports: No Symptoms Genitourinary: Reports: No Symptoms Musculoskeletal: Reports: No Symptoms Skin: Reports: No Symptoms Neurological: Reports: No Symptoms Psychiatric: Reports: No Symptoms - Patient Data Vitals - Most Recent: Last Vital Signs Temp 97.8 F 06/04/17 05:00 Pulse 70 06/04/17 05:00 Resp 16 06/04/17 05:00 BP 111/53 L 06/04/17 05:00 Pulse Ox 93 L 06/04/17 05:00 Weight - Most Recent: 81.7 kg I&O - Last 24 Hours: Intake & Output 06/03/17 06/04/17 06/04/17 22:59 06:59 14:59 Intake Total 1757 1950 Output Total 1140 1650 Balance 617 300 Lab Results Last 24 Hours: Laboratory Results - last 24 hr 06/03/17 06/03/17 06/03/17 Range/Units 07:40 08:46 11:38 WBC (4.0-11.0) K/uL RBC (4.50-5.90) M/uL Hgb 8.9 L (13.0-17.0) g/dL Hct 28.6 L (38.0-50.0) % MCV (80.0-98.0) fL MCH (27.0-32.0) pg MCHC (31.0-37.0) g/dL RDW Std Deviation (28.0-62.0) fl RDW Coeff of Matt (11.0-15.0) % Plt Count (150-400) K/uL MPV (7.40-12.00) fL Neut % (Auto) (48.0-80.0) % Lymph % (Auto) (16.0-40.0) % [place] % (Auto) (0.0-15.0) % Eos % (Auto) (0.0-7.0) % Baso % (Auto) (0.0-1.5) % Neut # (Auto) (1.4-5.7) K/uL Lymph # (Auto) (0.6-2.4) K/uL [place] # (Auto) (0.0-0.8) K/uL Eos # (Auto) (0.0-0.7) K/uL Baso # (Auto) (0.0-0.1) K/uL Nucleated RBC % /100WBC Nucleated RBCs # K/uL Sodium (136-146) mmol/L Potassium (3.5-5.1) mmol/L Chloride (98-110) mmol/L Carbon Dioxide (21-31) mmol/L BUN (6.0-23.0) mg/dL Creatinine (0.6-1.5) mg/dL Est Cr Clr Drug Dosing Estimated GFR (MDRD) ml/min Glucose (60-110) mg/dL POC Glucose 127 H 206 H (60-110) mg/dL Calcium (8.8-10.8) mg/dL Phosphorus (2.4-4.7) mg/dL Magnesium (1.5-2.3) mEq/L 06/03/17 06/03/17 06/03/17 Range/Units 15:57 19:31 20:30 WBC (4.0-11.0) K/uL RBC (4.50-5.90) M/uL Hgb (13.0-17.0) g/dL Hct (38.0-50.0) % MCV (80.0-98.0) fL MCH (27.0-32.0) pg MCHC (31.0-37.0) g/dL RDW Std Deviation (28.0-62.0) fl RDW Coeff of Matt (11.0-15.0) % Plt Count (150-400) K/uL MPV (7.40-12.00) fL Neut % (Auto) (48.0-80.0) % Lymph % (Auto) (16.0-40.0) % [place] % (Auto) (0.0-15.0) % Eos % (Auto) (0.0-7.0) % Baso % (Auto) (0.0-1.5) % Neut # (Auto) (1.4-5.7) K/uL Lymph # (Auto) (0.6-2.4) K/uL [place] # (Auto) (0.0-0.8) K/uL Eos # (Auto) (0.0-0.7) K/uL Baso # (Auto) (0.0-0.1) K/uL Nucleated RBC % /100WBC Nucleated RBCs # K/uL Sodium (136-146) mmol/L Potassium (3.5-5.1) mmol/L Chloride (98-110) mmol/L Carbon Dioxide (21-31) mmol/L BUN (6.0-23.0) mg/dL Creatinine (0.6-1.5) mg/dL Est Cr Clr Drug Dosing Estimated GFR (MDRD) ml/min Glucose (60-110) mg/dL POC Glucose 210 H 28 L 54 L (60-110) mg/dL Calcium (8.8-10.8) mg/dL Phosphorus (2.4-4.7) mg/dL Magnesium (1.5-2.3) mEq/L 06/03/17 06/03/17 06/03/17 Range/Units 21:40 21:42 22:37 WBC (4.0-11.0) K/uL RBC (4.50-5.90) M/uL Hgb (13.0-17.0) g/dL Hct (38.0-50.0) % MCV (80.0-98.0) fL MCH (27.0-32.0) pg MCHC (31.0-37.0) g/dL RDW Std Deviation (28.0-62.0) fl RDW Coeff of Matt (11.0-15.0) % Plt Count (150-400) K/uL MPV (7.40-12.00) fL Neut % (Auto) (48.0-80.0) % Lymph % (Auto) (16.0-40.0) % [place] % (Auto) (0.0-15.0) % Eos % (Auto) (0.0-7.0) % Baso % (Auto) (0.0-1.5) % Neut # (Auto) (1.4-5.7) K/uL Lymph # (Auto) (0.6-2.4) K/uL [place] # (Auto) (0.0-0.8) K/uL Eos # (Auto) (0.0-0.7) K/uL Baso # (Auto) (0.0-0.1) K/uL Nucleated RBC % /100WBC Nucleated RBCs # K/uL Sodium (136-146) mmol/L Potassium (3.5-5.1) mmol/L Chloride (98-110) mmol/L Carbon Dioxide (21-31) mmol/L BUN (6.0-23.0) mg/dL Creatinine (0.6-1.5) mg/dL Est Cr Clr Drug Dosing Estimated GFR (MDRD) ml/min Glucose (60-110) mg/dL POC Glucose 40 L 35 L 120 H (60-110) mg/dL Calcium (8.8-10.8) mg/dL Phosphorus (2.4-4.7) mg/dL Magnesium (1.5-2.3) mEq/L 06/04/17 06/04/17 06/04/17 Range/Units 05:16 05:40 05:40 WBC 2.62 L (4.0-11.0) K/uL RBC 2.22 L (4.50-5.90) M/uL Hgb 7.9 L (13.0-17.0) g/dL Hct 25.2 L (38.0-50.0) % MCV 113.5 H (80.0-98.0) fL MCH 35.6 H (27.0-32.0) pg MCHC 31.3 (31.0-37.0) g/dL RDW Std Deviation 64.5 H (28.0-62.0) fl RDW Coeff of Matt 16 H (11.0-15.0) % Plt Count 200 (150-400) K/uL MPV 10.90 (7.40-12.00) fL Neut % (Auto) 45.1 L (48.0-80.0) % Lymph % (Auto) 37.0 (16.0-40.0) % [place] % (Auto) 13.7 (0.0-15.0) % Eos % (Auto) 3.8 (0.0-7.0) % Baso % (Auto) 0.4 (0.0-1.5) % Neut # (Auto) 1.2 L (1.4-5.7) K/uL Lymph # (Auto) 1.0 (0.6-2.4) K/uL [place] # (Auto) 0.4 (0.0-0.8) K/uL Eos # (Auto) 0.1 (0.0-0.7) K/uL Baso # (Auto) 0.0 (0.0-0.1) K/uL Nucleated RBC % 0.0 /100WBC Nucleated RBCs # 0 K/uL Sodium 141 (136-146) mmol/L Potassium 3.8 (3.5-5.1) mmol/L Chloride 112 H (98-110) mmol/L Carbon Dioxide 22 (21-31) mmol/L BUN 7 (6.0-23.0) mg/dL Creatinine 0.6 (0.6-1.5) mg/dL Est Cr Clr Drug Dosing TNP Estimated GFR (MDRD) > 60.0 ml/min Glucose 109 (60-110) mg/dL POC Glucose 116 H (60-110) mg/dL Calcium 7.8 L (8.8-10.8) mg/dL Phosphorus 2.8 (2.4-4.7) mg/dL Magnesium 1.3 L (1.5-2.3) mEq/L 06/04/17 Range/Units 07:34 WBC (4.0-11.0) K/uL RBC (4.50-5.90) M/uL Hgb (13.0-17.0) g/dL Hct (38.0-50.0) % MCV (80.0-98.0) fL MCH (27.0-32.0) pg MCHC (31.0-37.0) g/dL RDW Std Deviation (28.0-62.0) fl RDW Coeff of Matt (11.0-15.0) % Plt Count (150-400) K/uL MPV (7.40-12.00) fL Neut % (Auto) (48.0-80.0) % Lymph % (Auto) (16.0-40.0) % [place] % (Auto) (0.0-15.0) % Eos % (Auto) (0.0-7.0) % Baso % (Auto) (0.0-1.5) % Neut # (Auto) (1.4-5.7) K/uL Lymph # (Auto) (0.6-2.4) K/uL [place] # (Auto) (0.0-0.8) K/uL Eos # (Auto) (0.0-0.7) K/uL Baso # (Auto) (0.0-0.1) K/uL Nucleated RBC % /100WBC Nucleated RBCs # K/uL Sodium (136-146) mmol/L Potassium (3.5-5.1) mmol/L Chloride (98-110) mmol/L Carbon Dioxide (21-31) mmol/L BUN (6.0-23.0) mg/dL Creatinine (0.6-1.5) mg/dL Est Cr Clr Drug Dosing Estimated GFR (MDRD) ml/min Glucose (60-110) mg/dL POC Glucose 102 (60-110) mg/dL Calcium (8.8-10.8) mg/dL Phosphorus (2.4-4.7) mg/dL Magnesium (1.5-2.3) mEq/L Med Orders - Current: Current Medications Acetaminophen (Tylenol) 650 mg PO Q6H PRN PRN Reason: Pain/Fever Last Admin: 06/02/17 08:52 Dose: 650 mg Aspirin (Aspirin) 325 mg PO DAILY [facility] Last Admin: 06/04/17 08:05 Dose: Not Given Baclofen (Lioresal) 10 mg PO TID [facility] Last Admin: 06/04/17 05:33 Dose: 10 mg Bupropion HCl (Wellbutrin Xl) 300 mg PO DAILY [facility] Last Admin: 06/04/17 08:07 Dose: 300 mg Ciprofloxacin (Ciprofloxacin Hcl) 750 mg PO BID [facility] Last Admin: 06/04/17 08:07 Dose: 750 mg Docusate Sodium (Colace) 100 mg PO BID [facility] Last Admin: 06/04/17 08:07 Dose: 100 mg Enoxaparin Sodium (Lovenox) 40 mg SUBCUT DAILY [facility] Last Admin: 06/04/17 08:06 Dose: Not Given Gabapentin (Neurontin) 600 mg PO QID [facility] Last Admin: 06/04/17 05:32 Dose: 600 mg Sodium Chloride (Normal Saline) 1,000 mls @ 125 mls/hr IV ASDIRECTED [facility] Last Admin: 06/04/17 04:01 Dose: 125 mls/hr Sertraline HCl (Zoloft) 50 mg PO DAILY [facility] Last Admin: 06/04/17 08:07 Dose: 50 mg Sodium Chloride (Saline Flush) 10 ml FLUSH ASDIRECTED PRN PRN Reason: Keep Vein Open Sodium Chloride (Saline Flush) 2.5 ml FLUSH ASDIRECTED PRN PRN Reason: Keep Vein Open Tramadol HCl (Ultram) 50 mg PO QID [facility] Last Admin: 06/04/17 05:32 Dose: 50 mg Discontinued Medications Ciprofloxacin (Ciprofloxacin Hcl) 500 mg PO BID [facility] Dextrose/Water (Dextrose 50% In Water) 50 ml IVPUSH ONETIME ONE Stop: 06/01/17 22:10 Last Admin: 06/01/17 22:09 Dose: 50 ml Dextrose/Water (Dextrose 50% In Water) Confirm Administered Dose 50 ml .ROUTE .STK-MED ONE Stop: 06/03/17 19:34 Last Admin: 06/03/17 19:55 Dose: Not Given Dextrose/Water (Dextrose 50% In Water) 50 ml IVPUSH ONETIME ONE Stop: 06/03/17 19:38 Last Admin: 06/03/17 19:35 Dose: 50 ml Dextrose/Water (Dextrose 50% In Water) 50 ml IVPUSH ONETIME STA Stop: 06/03/17 21:52 Last Admin: 06/03/17 21:53 Dose: 50 ml Dextrose/Water (Dextrose 50% In Water) Confirm Administered Dose 50 ml .ROUTE .STK-MED ONE Stop: 06/03/17 21:54 Last Admin: 06/03/17 22:03 Dose: Not Given Sodium Chloride (Normal Saline) 1,000 mls @ 999 mls/hr IV STAT ONE Stop: 06/01/17 22:25 Last Admin: 06/01/17 21:25 Dose: 999 mls/hr Piperacillin Sod/Tazobactam (Sod 3.375 gm/ Sodium Chloride) 50 mls @ 100 mls/ hr IV ONETIME ONE Stop: 06/01/17 23:24 Last Admin: 06/01/17 23:28 Dose: 100 mls/hr Sodium Chloride (Normal Saline) 1,000 mls @ 999 mls/hr IV ASDIRECTED [facility] Last Admin: 06/01/17 22:45 Dose: 999 mls/hr Dopamine HCl/Dextrose (Dopamine In D5w 400 Mg/250 Ml) 400 mg in 250 mls @ 15.375 mls/hr IV TITRATE JEWELL; 5 MCG/KG/MIN PRN Reason: Protocol Last Titration: 06/02/17 18:25 Dose: 0 mcg/kg/min, 0 mls/hr Sodium Chloride (Normal Saline) 1,000 mls @ 999 mls/hr IV ASDIRECTED [facility] Last Admin: 06/01/17 23:28 Dose: 999 mls/hr Piperacillin Sod/Tazobactam (Sod 3.375 gm/ Sodium Chloride) 50 mls @ 100 mls/ hr IV Q6H [facility] Last Admin: 06/02/17 02:57 Dose: Not Given Piperacillin Sod/Tazobactam (Sod 3.375 gm/ Sodium Chloride) 50 mls @ 100 mls/ hr IV Q6H JEWELL Piperacillin Sod/Tazobactam (Sod 3.375 gm/ Sodium Chloride) 50 mls @ 100 mls/ hr IV Q6H [facility] Last Admin: 06/03/17 06:02 Dose: 100 mls/hr Vancomycin HCl 1,250 mg/ (Sodium Chloride) 250 mls @ 250 mls/hr IV Q12H [facility] Last Admin: 06/03/17 09:52 Dose: 250 mls/hr Magnesium Sulfate 4 gm/ Premix 100 mls @ 50 mls/hr IV ONETIME ONE Stop: 06/03/17 08:38 Last Admin: 06/03/17 07:36 Dose: 50 mls/hr Insulin Aspart (Novolog) 0 unit SUBCUT TIDAC [facility] PRN Reason: Protocol Last Admin: 06/03/17 16:48 Dose: Not Given Trimethoprim/Sulfamethoxazole (Septra Ds) 1 tab PO BID [facility] Last Admin: 06/03/17 11:16 Dose: Not Given Vancomycin HCl (Pharmacy To Dose - Vancomycin) 1 dose .XX ASDIRECTED [facility] - Exam General: Alert, Oriented HEENT: Pupils Equal, EOMI Neck: Supple, Trachea Midline Lungs: Clear to Auscultation, Normal Respiratory Effort Cardiovascular: Regular Rate, Regular Rhythm GI/Abdominal Exam: Normal Bowel Sounds, Soft - My Orders Last 24 Hours: My Active Orders 06/03/17 09:00 Docusate Sodium [Colace] 100 mg PO BID 06/03/17 18:47 Consult to Diabetic Nurse Specialist [CONS] Routine 06/03/17 21:00 Accu Check [Blood Glucose Check, Bedside] [RC] QIDACANDBED 06/05/17 05:11 BASIC METABOLIC PANEL,BMP [CHEM] AM CBC WITH AUTO DIFF [HEME] AM MAGNESIUM [CHEM] AM PHOSPHORUS [CHEM] AM - Plan Plan:: 76 yo male who presents with hypotension, hypoglycemia, and UTI. Hypomagnesium: replaced today HB 7.9 repeated again this am. 8.9 UTI: urine culture is providencia rettgeri: sensitive to PO cipro. DM: on ISS On IVF 125 ml/hr Constipation: start colace. clinical educator consulted: to evaluate insulin pump.
[2017-06-04] MEDS ORDERED: Magnesium Sulfate/Water 2 GM in Premix Bag 1 BAG IV ONE (09:19)
[2017-06-04 13:29] VITALS: BP 128/71
--- NOTE | 2017-06-04 15:34 | PCM.DCSUM1 ---
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 He requried dopamine drip despite 3 liters of NS fluid. He was treated intially treated with zosyn until urine culture revealed providencia rettgeri which was sensitive to po ciprofloxacin. Dm educator was consulted and was put back on insulin pump. He had another episode of hypoglycemia of 29. He was given D50. His blood sugars stabilized. It was determined that he was counting appropriate carbs but not finishing his meals. DM educator returned and educated him. He understood. He was discharged with cipro 750 mg po bid x 10 days. - Discharge Data Discharge Date: 06/04/17 Discharge Disposition: Home, Self-Care 01 Condition: Good - Patient Summary/Data Consults: Consultations 06/03/17 18:47 Consult to Diabetic Nurse Specialist [CONS] Routine - Patient Instructions Diet: Diabetic Diet Activity: As Tolerated Driving: Do Not Drive Showering/Bathing: May Shower Notify Provider of: Fever, Increased Pain, Swelling and Redness, Drainage, Nausea and/or Vomiting - Discharge Plan Prescriptions/Med Rec: Ciprofloxacin HCl [Cipro] 750 mg PO BID #20 tablet Home Medications: Home Meds Acetaminophen [Masophen] 1,000 mg PO TID PRN 12/11/14 [History] Aspirin 325 mg PO DAILY 12/11/14 [History] Gabapentin [Neurontin] 600 mg PO QID 12/11/14 [History] traMADol [Ultram] 50 mg PO QID 12/11/14 [History] Docusate Sodium [Colace] 100 mg PO BID 01/14/15 [History] Multivitamin [Multivitamins] 1 tab PO DAILY 01/14/15 [History] Sertraline [Zoloft] 50 mg PO DAILY 01/14/15 [History] Insulin Aspart Protam & Aspart [Novolog Mix 70-30 Flexpen Syrn] 0 units SUBCUT DAILY 11/05/16 [History] Lisinopril 5 mg PO DAILY 11/05/16 [History] Baclofen 10 mg PO TID 06/02/17 [History] Cyanocobalamin (Vitamin B12) [Vitamin B12] 1,000 mcg IM Q30D 06/02/17 [History] Fluconazole [Diflucan] 200 mg PO Q7D 06/02/17 [History] Ondansetron HCl [Ondansetron] 8 mg PO TID PRN 06/02/17 [History] Prochlorperazine Maleate [Compazine] 10 mg PO Q4H PRN 06/02/17 [History] buPROPion HCl [Wellbutrin Xl] 300 mg PO DAILY 06/02/17 [History] Ciprofloxacin HCl [Cipro] 750 mg PO BID #20 tablet 06/04/17 [Rx] Patient Handouts: Hypotension, [id number], Dehydration, Adult, [id number], Ciprofloxacin tablets, Hypoglycemia, [id number] Forms: ED Department Discharge Referrals: John Doan MD [Primary Care Provider] - 06/15/17 3:00 pm - General Info Date of Service: 06/04/17 Functional Status: Reports: Pain Controlled, Tolerating Diet - Review of Systems General: Reports: No Symptoms HEENT: Reports: No Symptoms Pulmonary: Reports: No Symptoms Cardiovascular: Reports: No Symptoms Gastrointestinal: Reports: No Symptoms Genitourinary: Reports: No Symptoms Musculoskeletal: Reports: No Symptoms Skin: Reports: Other Neurological: Reports: No Symptoms Psychiatric: Reports: No Symptoms - Patient Data Vitals - Most Recent: Last Vital Signs Temp 97.7 F 06/04/17 13:27 Pulse 69 06/04/17 13:27 Resp 18 06/04/17 13:27 BP 128/71 06/04/17 13:27 Pulse Ox 96 06/04/17 13:27 Weight - Most Recent: 81.7 kg I&O - Last 24 hours: Intake & Output 06/04/17 06/04/17 06/04/17 06:59 14:59 22:59 Intake Total 1950 1050 Output Total 1650 Balance 300 1050 Lab Results - Last 24 hrs: Laboratory Results - last 24 hr 06/03/17 06/03/17 06/03/17 Range/Units 15:57 19:31 20:30 WBC (4.0-11.0) K/uL RBC (4.50-5.90) M/uL Hgb (13.0-17.0) g/dL Hct (38.0-50.0) % MCV (80.0-98.0) fL MCH (27.0-32.0) pg MCHC (31.0-37.0) g/dL RDW Std Deviation (28.0-62.0) fl RDW Coeff of Matt (11.0-15.0) % Plt Count (150-400) K/uL MPV (7.40-12.00) fL Neut % (Auto) (48.0-80.0) % Lymph % (Auto) (16.0-40.0) % [place] % (Auto) (0.0-15.0) % Eos % (Auto) (0.0-7.0) % Baso % (Auto) (0.0-1.5) % Neut # (Auto) (1.4-5.7) K/uL Lymph # (Auto) (0.6-2.4) K/uL [facility] # (Auto) (0.0-0.8) K/uL Eos # (Auto) (0.0-0.7) K/uL Baso # (Auto) (0.0-0.1) K/uL Nucleated RBC % /100WBC Nucleated RBCs # K/uL Sodium (136-146) mmol/L Potassium (3.5-5.1) mmol/L Chloride (98-110) mmol/L Carbon Dioxide (21-31) mmol/L BUN (6.0-23.0) mg/dL Creatinine (0.6-1.5) mg/dL Est Cr Clr Drug Dosing Estimated GFR (MDRD) ml/min Glucose (60-110) mg/dL POC Glucose 210 H 28 L 54 L (60-110) mg/dL Calcium (8.8-10.8) mg/dL Phosphorus (2.4-4.7) mg/dL Magnesium (1.5-2.3) mEq/L 06/03/17 06/03/17 06/03/17 Range/Units 21:40 21:42 22:37 WBC (4.0-11.0) K/uL RBC (4.50-5.90) M/uL Hgb (13.0-17.0) g/dL Hct (38.0-50.0) % MCV (80.0-98.0) fL MCH (27.0-32.0) pg MCHC (31.0-37.0) g/dL RDW Std Deviation (28.0-62.0) fl RDW Coeff of Matt (11.0-15.0) % Plt Count (150-400) K/uL MPV (7.40-12.00) fL Neut % (Auto) (48.0-80.0) % Lymph % (Auto) (16.0-40.0) % [place] % (Auto) (0.0-15.0) % Eos % (Auto) (0.0-7.0) % Baso % (Auto) (0.0-1.5) % Neut # (Auto) (1.4-5.7) K/uL Lymph # (Auto) (0.6-2.4) K/uL [facility] # (Auto) (0.0-0.8) K/uL Eos # (Auto) (0.0-0.7) K/uL Baso # (Auto) (0.0-0.1) K/uL Nucleated RBC % /100WBC Nucleated RBCs # K/uL Sodium (136-146) mmol/L Potassium (3.5-5.1) mmol/L Chloride (98-110) mmol/L Carbon Dioxide (21-31) mmol/L BUN (6.0-23.0) mg/dL Creatinine (0.6-1.5) mg/dL Est Cr Clr Drug Dosing Estimated GFR (MDRD) ml/min Glucose (60-110) mg/dL POC Glucose 40 L 35 L 120 H (60-110) mg/dL Calcium (8.8-10.8) mg/dL Phosphorus (2.4-4.7) mg/dL Magnesium (1.5-2.3) mEq/L 06/04/17 06/04/17 06/04/17 Range/Units 05:16 05:40 05:40 WBC 2.62 L (4.0-11.0) K/uL RBC 2.22 L (4.50-5.90) M/uL Hgb 7.9 L (13.0-17.0) g/dL Hct 25.2 L (38.0-50.0) % MCV 113.5 H (80.0-98.0) fL MCH 35.6 H (27.0-32.0) pg MCHC 31.3 (31.0-37.0) g/dL RDW Std Deviation 64.5 H (28.0-62.0) fl RDW Coeff of Matt 16 H (11.0-15.0) % Plt Count 200 (150-400) K/uL MPV 10.90 (7.40-12.00) fL Neut % (Auto) 45.1 L (48.0-80.0) % Lymph % (Auto) 37.0 (16.0-40.0) % [facility] % (Auto) 13.7 (0.0-15.0) % Eos % (Auto) 3.8 (0.0-7.0) % Baso % (Auto) 0.4 (0.0-1.5) % Neut # (Auto) 1.2 L (1.4-5.7) K/uL Lymph # (Auto) 1.0 (0.6-2.4) K/uL [facility] [place] # (Auto) 0.4 (0.0-0.8) K/uL Eos # (Auto) 0.1 (0.0-0.7) K/uL Baso # (Auto) 0.0 (0.0-0.1) K/uL Nucleated RBC % 0.0 /100WBC Nucleated RBCs # 0 K/uL Sodium 141 (136-146) mmol/L Potassium 3.8 (3.5-5.1) mmol/L Chloride 112 H (98-110) mmol/L Carbon Dioxide 22 (21-31) mmol/L BUN 7 (6.0-23.0) mg/dL Creatinine 0.6 (0.6-1.5) mg/dL Est Cr Clr Drug Dosing TNP Estimated GFR (MDRD) > 60.0 ml/min Glucose 109 (60-110) mg/dL POC Glucose 116 H (60-110) mg/dL Calcium 7.8 L (8.8-10.8) mg/dL Phosphorus 2.8 (2.4-4.7) mg/dL Magnesium 1.3 L (1.5-2.3) mEq/L 06/04/17 06/04/17 06/04/17 Range/Units 07:34 11:26 14:33 WBC (4.0-11.0) K/uL RBC (4.50-5.90) M/uL Hgb (13.0-17.0) g/dL Hct (38.0-50.0) % MCV (80.0-98.0) fL MCH (27.0-32.0) pg MCHC (31.0-37.0) g/dL RDW Std Deviation (28.0-62.0) fl RDW Coeff of Matt (11.0-15.0) % Plt Count (150-400) K/uL MPV (7.40-12.00) fL Neut % (Auto) (48.0-80.0) % Lymph % (Auto) (16.0-40.0) % [facility] % (Auto) (0.0-15.0) % Eos % (Auto) (0.0-7.0) % Baso % (Auto) (0.0-1.5) % Neut # (Auto) (1.4-5.7) K/uL Lymph # (Auto) (0.6-2.4) K/uL [facility] # (Auto) (0.0-0.8) K/uL Eos # (Auto) (0.0-0.7) K/uL Baso # (Auto) (0.0-0.1) K/uL Nucleated RBC % /100WBC Nucleated RBCs # K/uL Sodium (136-146) mmol/L Potassium (3.5-5.1) mmol/L Chloride (98-110) mmol/L Carbon Dioxide (21-31) mmol/L BUN (6.0-23.0) mg/dL Creatinine (0.6-1.5) mg/dL Est Cr Clr Drug Dosing Estimated GFR (MDRD) ml/min Glucose (60-110) mg/dL POC Glucose 102 176 H 219 H (60-110) mg/dL Calcium (8.8-10.8) mg/dL Phosphorus (2.4-4.7) mg/dL Magnesium (1.5-2.3) mEq/L Med Orders - Current: Current Medications Acetaminophen (Tylenol) 650 mg PO Q6H PRN PRN Reason: Pain/Fever Last Admin: 06/02/17 08:52 Dose: 650 mg Aspirin (Aspirin) 325 mg PO DAILY [facility] Last Admin: 06/04/17 08:05 Dose: Not Given Baclofen (Lioresal) 10 mg PO TID [facility] Last Admin: 06/04/17 13:22 Dose: 10 mg Bupropion HCl (Wellbutrin Xl) 300 mg PO DAILY [facility] Last Admin: 06/04/17 08:07 Dose: 300 mg Ciprofloxacin (Ciprofloxacin Hcl) 750 mg PO BID [facility] Last Admin: 06/04/17 08:07 Dose: 750 mg Docusate Sodium (Colace) 100 mg PO BID [facility] Last Admin: 06/04/17 08:07 Dose: 100 mg Enoxaparin Sodium (Lovenox) 40 mg SUBCUT DAILY [facility] Last Admin: 06/04/17 08:06 Dose: Not Given Gabapentin (Neurontin) 600 mg PO QID [facility] Last Admin: 06/04/17 11:17 Dose: 600 mg Sodium Chloride (Normal Saline) 1,000 mls @ 125 mls/hr IV ASDIRECTED [facility] Last Admin: 06/04/17 13:28 Dose: 125 mls/hr Sertraline HCl (Zoloft) 50 mg PO DAILY [facility] Last Admin: 06/04/17 08:07 Dose: 50 mg Sodium Chloride (Saline Flush) 10 ml FLUSH ASDIRECTED PRN PRN Reason: Keep Vein Open Sodium Chloride (Saline Flush) 2.5 ml FLUSH ASDIRECTED PRN PRN Reason: Keep Vein Open Tramadol HCl (Ultram) 50 mg PO QID [facility] Last Admin: 06/04/17 11:17 Dose: 50 mg Discontinued Medications Ciprofloxacin (Ciprofloxacin Hcl) 500 mg PO BID [facility] Dextrose/Water (Dextrose 50% In Water) 50 ml IVPUSH ONETIME ONE Stop: 06/01/17 22:10 Last Admin: 06/01/17 22:09 Dose: 50 ml Dextrose/Water (Dextrose 50% In Water) Confirm Administered Dose 50 ml .ROUTE .STK-MED ONE Stop: 06/03/17 19:34 Last Admin: 06/03/17 19:55 Dose: Not Given Dextrose/Water (Dextrose 50% In Water) 50 ml IVPUSH ONETIME ONE Stop: 06/03/17 19:38 Last Admin: 06/03/17 19:35 Dose: 50 ml Dextrose/Water (Dextrose 50% In Water) 50 ml IVPUSH ONETIME STA Stop: 06/03/17 21:52 Last Admin: 06/03/17 21:53 Dose: 50 ml Dextrose/Water (Dextrose 50% In Water) Confirm Administered Dose 50 ml .ROUTE .STK-MED ONE Stop: 06/03/17 21:54 Last Admin: 06/03/17 22:03 Dose: Not Given Sodium Chloride (Normal Saline) 1,000 mls @ 999 mls/hr IV STAT ONE Stop: 06/01/17 22:25 Last Admin: 06/01/17 21:25 Dose: 999 mls/hr Piperacillin Sod/Tazobactam (Sod 3.375 gm/ Sodium Chloride) 50 mls @ 100 mls/ hr IV ONETIME ONE Stop: 06/01/17 23:24 Last Admin: 06/01/17 23:28 Dose: 100 mls/hr Sodium Chloride (Normal Saline) 1,000 mls @ 999 mls/hr IV ASDIRECTED [facility] Last Admin: 06/01/17 22:45 Dose: 999 mls/hr Dopamine HCl/Dextrose (Dopamine In D5w 400 Mg/250 Ml) 400 mg in 250 mls @ 15.375 mls/hr IV TITRATE [facility]; 5 MCG/KG/MIN PRN Reason: Protocol Last Titration: 06/02/17 18:25 Dose: 0 mcg/kg/min, 0 mls/hr Sodium Chloride (Normal Saline) 1,000 mls @ 999 mls/hr IV ASDIRECTED [facility] Last Admin: 06/01/17 23:28 Dose: 999 mls/hr Piperacillin Sod/Tazobactam (Sod 3.375 gm/ Sodium Chloride) 50 mls @ 100 mls/ hr IV Q6H [facility] Last Admin: 06/02/17 02:57 Dose: Not Given Piperacillin Sod/Tazobactam (Sod 3.375 gm/ Sodium Chloride) 50 mls @ 100 mls/ hr IV Q6H [facility] Piperacillin Sod/Tazobactam (Sod 3.375 gm/ Sodium Chloride) 50 mls @ 100 mls/ hr IV Q6H [facility] Last Admin: 06/03/17 06:02 Dose: 100 mls/hr Vancomycin HCl 1,250 mg/ (Sodium Chloride) 250 mls @ 250 mls/hr IV Q12H [facility] Last Admin: 06/03/17 09:52 Dose: 250 mls/hr Magnesium Sulfate 4 gm/ Premix 100 mls @ 50 mls/hr IV ONETIME ONE Stop: 06/03/17 08:38 Last Admin: 06/03/17 07:36 Dose: 50 mls/hr Magnesium Sulfate 2 gm/ Premix 50 mls @ 50 mls/hr IV ONETIME ONE Stop: 06/04/17 10:18 Last Admin: 06/04/17 09:46 Dose: 50 mls/hr Insulin Aspart (Novolog) 0 unit SUBCUT TIDAC [facility] PRN Reason: Protocol Last Admin: 06/03/17 16:48 Dose: Not Given Trimethoprim/Sulfamethoxazole (Septra Ds) 1 tab PO BID [facility] Last Admin: 06/03/17 11:16 Dose: Not Given Vancomycin HCl (Pharmacy To Dose - Vancomycin) 1 dose .XX ASDIRECTED [facility] - Exam General: Reports: Alert, Oriented, Cooperative HEENT: Reports: Pupils Equal, EOMI Neck: Reports: Supple, Trachea Midline Lungs: Reports: Clear to Auscultation, Normal Respiratory Effort Cardiovascular: Reports: Regular Rate, Regular Rhythm GI/Abdominal Exam: Normal Bowel Sounds, Soft Back Exam: Reports: Normal Inspection Extremities: Normal Inspection, Other (bilateral AKA) Skin: Reports: Other (right lateral groin: pressure ulcer in healing phase. No drainage or exudates. ) Neurological: Reports: No New Focal Deficit *Q Meaningful Use (DIS) - VTE *Q VTE Criteria *Q: - Stroke *Q Stroke Criteria *Q: - AMI *Q AMI Criteria *Q:
== END 2017-06-04 15:55 | disposition home or self-care (01) | DRG 690 ==
LOC: MW.ED 21:16 → MW.ICU 23:29
PROVIDERS: ADMIT Internal Medicine; ATTEND Internal Medicine
DX: E86.0 Dehydration (principal); N39.0 Urinary tract infection, site not specified; C95.90 Leukemia, unspecified not having achieved remission; B96.89 Other specified bacterial agents as the cause of diseases classified elsewhere; I95.9 Hypotension, unspecified; E83.42 Hypomagnesemia; E11.9 Type 2 diabetes mellitus without complications; E11.649 Type 2 diabetes mellitus with hypoglycemia without coma; K59.00 Constipation, unspecified; J44.9 Chronic obstructive pulmonary disease, unspecified; K21.9 Gastro-esophageal reflux disease without esophagitis; F41.8 Other specified anxiety disorders; Z79.4 Long term (current) use of insulin; Z88.8 Allergy status to other drugs, medicaments and biological substances; Z96.41 Presence of insulin pump (external) (internal); Z79.899 Other long term (current) drug therapy; Z87.891 Personal history of nicotine dependence
CPT/HCPCS: 36415; 71010; 80053; 81001; 82550; 82962 ×2; 83605; 84484; 85025; 86850; 86900; 86901; 87040 ×2; 87086; 87186; 93005; 96361; 96365; 96375; 99285; J2543; J7040 ×3; J7050; J7060; 80048; 83735; 84100; 85014; 85018; 87088; 99284; A9270-GY; J1265; J1650; J1815-GY; J3370; J3475

== ENCOUNTER 2017-07-21 22:14 | Observation (INO) | payer MEDICARE, OTHER ==
[2017-07-21] MEDS ORDERED: 50% Dextrose in Water 50 ML Syringe ONE (22:15)
--- NOTE | 2017-07-21 22:29 | EDM.PDOC ---
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 He denies chest pain he denies shortness of breath he denies nausea vomiting Review of systems: As per history of present illness and below otherwise all systems reviewed and negative. Past medical history: As per history of present illness and as reviewed below otherwise noncontributory. Surgical history: As per history of present illness and as reviewed below otherwise noncontributory. Social history: No reported history of drug or alcohol abuse. Family history: As per history of present illness and as reviewed below otherwise noncontributory. Physical exam: HEENT: Atraumatic, normocephalic, pupils reactive, negative for conjunctival pallor noted no scleral icterus, mucous membranes moist, throat clear, neck supple, nontender, trachea midline. Lungs: Coarse, breath sounds equal bilaterally, chest nontender. Heart: S1S2, regular, negative for clicks, rubs, or JVD. Abdomen: Soft, nondistended, nontender. Negative for masses or hepatosplenomegaly. Negative for costovertebral tenderness. Pelvis: Stable nontender. Genitourinary: Deferred. Rectal: Deferred. Extremities: Bilateral AKA otherwise unremarkable. Neuro: Awake, somnolent oriented. Follows commands moves all extremities limited but grossly nonfocal exam Diagnostics: CBC CMP PT/INR troponin ammonia blood culture 2 lactic acid UA urine culture EKG chest x-ray CT brain Therapeutics: Normal saline 1 L bolus D50 25 mL IV Impression: #1 altered mental status #2 history of leukemia #3 history of diabetes Definitive disposition and diagnosis as appropriate pending reevaluation and review of above. - Related Data Allergies Allergy/AdvReac Type Severity Reaction Status Date / Time codeine Allergy Intermediate Confusion Verified 06/01/17 21:32 cologne Allergy Other Uncoded 06/01/17 21:32 Hayfever Allergy Other Uncoded 06/01/17 21:32 Home Meds: Home Meds Acetaminophen [Masophen] 1,000 mg PO TID PRN 12/11/14 [History] Aspirin 325 mg PO DAILY 12/11/14 [History] Gabapentin [Neurontin] 600 mg PO QID 12/11/14 [History] traMADol [Ultram] 50 mg PO QID 12/11/14 [History] Docusate Sodium [Colace] 100 mg PO BID 01/14/15 [History] Multivitamin [Multivitamins] 1 tab PO DAILY 01/14/15 [History] Sertraline [Zoloft] 50 mg PO DAILY 01/14/15 [History] Insulin Aspart Protam & Aspart [Novolog Mix 70-30 Flexpen Syrn] 0 units SUBCUT DAILY 11/05/16 [History] Lisinopril 5 mg PO DAILY 11/05/16 [History] Baclofen 10 mg PO TID 06/02/17 [History] Cyanocobalamin (Vitamin B12) [Vitamin B12] 1,000 mcg IM Q30D 06/02/17 [History] Fluconazole [Diflucan] 200 mg PO Q7D 06/02/17 [History] Ondansetron HCl [Ondansetron] 8 mg PO TID PRN 06/02/17 [History] Prochlorperazine Maleate [Compazine] 10 mg PO Q4H PRN 06/02/17 [History] buPROPion HCl [Wellbutrin Xl] 300 mg PO DAILY 06/02/17 [History] Past Medical History HEENT History: Reports: Cataract, Hard of Hearing Other HEENT History: wears glasses, has bilateral hearing aides Cardiovascular History: Reports: Angina Other Cardiovascular History: denies chest pain and SOB Respiratory History: Reports: COPD, Sleep Apnea Other Respiratory History: not currently using CPAP Gastrointestinal History: Reports: GERD, Hiatal Hernia Other Gastrointestinal History: Chronic Heartburn ("used to take Nexium, quit working so I stopped") Genitourinary History: Reports: BPH, UTI, Recurrent Other Genitourinary History: Enlarged prostate Musculoskeletal History: Reports: Back Pain, Chronic, Fracture Other Musculoskeletal History: hx of fx right arm and left shoulder/ clavicle Neurological History: Reports: Concussion Other Neuro History: 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 Psychiatric History: Reports: Anxiety, Depression Endocrine/Metabolic History: Reports: Diabetes, Type II Hematologic History: Reports: Anemia, Blood Transfusion(s) Other Hematologic History: easy bruising/bleeding Immunologic History: Reports: None Other Immunologic History: Positive MRSA Oncologic (Cancer) History: Reports: Leukemia, Other (See Below) Other Oncologic History: removal of skin cancer on forehead x2, "possible leukemia" Dermatologic History: Reports: Other (See Below) Other Dermatologic History: has dry skin, "pimple like sores to stumps and buttocks" not open or draining, states he "thinks he has MRSA" as he has had nasal swab in the past and was told it was positive - Infectious Disease History Infectious Disease History: Reports: MRSA - Past Surgical History Cardiovascular Surgical History: Reports: Coronary Artery Stent GI Surgical History: Reports: Other (See Below) Neurological Surgical History: Reports: Other (See Below) Social & Family History - Family History Family Medical History: Noncontributory Cardiac: Reports: None - Tobacco Use Smoking Status *Q: Former Smoker Years of Tobacco use: 37 Used Tobacco, but Quit: Yes Month Tobacco Last Used: quit smoking Aug 27, 1997 Second Hand Smoke Exposure: No - Caffeine Use Caffeine Use: Reports: Coffee, Soda, Tea Other Caffeine Use: some coffee, tea. Soda drinks a lot - Alcohol Use Days Per Week of Alcohol Use: 0 Number of Drinks Per Day: 0 Total Drinks Per Week: 0 - Recreational Drug Use Recreational Drug Use: No Drug Use in Last 12 Months: No ED ROS GENERAL - Review of Systems Review Of Systems: ROS reveals no pertinent complaints other than HPI. ED EXAM GENERAL NO PERIP PULSE - Physical Exam Exam: See Below (Dictated) Course - Vital Signs Last Recorded V/S: Last Vital Signs Temp 36.7 C 07/21/17 22:21 Pulse 76 07/21/17 23:52 Resp 20 07/21/17 23:52 BP 87/52 L 07/21/17 23:52 Pulse Ox 98 07/21/17 23:52 - Orders/Labs/Meds Orders: Active Orders 24 hr Category Date Time Status EKG Documentation Completion [RC] STAT Care 07/21/17 22:27 Active Chest 1V Frontal [CR] Stat Exams 07/21/17 22:27 Taken Head wo Cont [CT] Stat Exams 07/21/17 22:27 Taken CULTURE BLOOD [BC] Stat Lab 07/21/17 22:40 Results CULTURE BLOOD [BC] Stat Lab 07/21/17 22:47 Received CULTURE URINE [RM] Stat Lab 07/21/17 23:25 Received Sodium Chloride 0.9% [Normal Saline] 1,000 ml Med 07/21/17 23:20 Active IV .Bolus Blood Culture x2 Reflex Set [OM.PC] Stat Oth 07/21/17 22:26 Ordered Medication Orders Sodium Chloride (Normal Saline) 1,000 mls @ 999 mls/hr IV .Bolus ONE Stop: 07/22/17 00:20 Last Admin: 07/21/17 23:20 Dose: 999 mls/hr Labs: Laboratory Tests 07/21/17 07/21/17 07/21/17 Range/Units 22:28 22:40 22:40 WBC (4.0-11.0) K/uL RBC (4.50-5.90) M/uL Hgb (13.0-17.0) g/dL Hct (38.0-50.0) % MCV (80.0-98.0) fL MCH (27.0-32.0) pg MCHC (31.0-37.0) g/dL RDW Std Deviation (28.0-62.0) fl RDW Coeff of Matt (11.0-15.0) % Plt Count (150-400) K/uL MPV (7.40-12.00) fL Add Manual Diff Neutrophils % (Manual) (48.0-80.0) % Band Neutrophils % % Lymphocytes % (Manual) (16.0-40.0) % Monocytes % (Manual) (0.0-15.0) % Basophils % (Manual) (0.0-1.5) % Metamyelocytes % % Nucleated RBC % /100WBC Absolute Seg Neuts Band Neutrophils # Lymphocytes # (Manual) Monocytes # (Manual) Basophils # (Manual) Absolute Metamyelocyte Nucleated RBCs # K/uL INR (0.86-1.11) Lactate 1.6 (0.20-2.00) mmol/L Sodium (136-146) mmol/L Potassium (3.5-5.1) mmol/L Chloride (98-110) mmol/L Carbon Dioxide (21-31) mmol/L BUN (6.0-23.0) mg/dL Creatinine (0.6-1.5) mg/dL Est Cr Clr Drug Dosing Estimated GFR (MDRD) ml/min Glucose (60-110) mg/dL POC Glucose 160 H (60-110) mg/dL Calcium (8.8-10.8) mg/dL Total Bilirubin (0.1-1.5) mg/dL AST (5-40) IU/L ALT (8-54) IU/L Alkaline Phosphatase (40-150) Ammonia 41 (14-68) UG/DL CK-MB (CK-2) (0-6.6) ng/ml Troponin I (0.0-0.29) NG/ML Total Protein (6.0-8.0) g/dL Albumin (3.4-4.8) g/dL Globulin (2.0-3.5) g/dL Albumin/Globulin Ratio (1.3-2.8) Urine Color Urine Appearance Urine pH (5.0-8.0) Ur Specific Laurel (1.001-1.035) Urine Protein (NEGATIVE) mg/dL Urine Glucose (UA) (NEGATIVE) mg/dL Urine Ketones (NEGATIVE) mg/dL Urine Occult Blood (NEGATIVE) Urine Nitrite (NEGATIVE) Urine Bilirubin (NEGATIVE) Urine Urobilinogen (<2.0) EU/dL Ur Leukocyte Esterase (NEGATIVE) Urine RBC (0-2/HPF) Urine WBC (0-5/HPF) Ur Epithelial Cells (NONE-FEW) Urine Bacteria (NEGATIVE) 07/21/17 07/21/17 07/21/17 Range/Units 22:47 22:47 22:47 WBC 9.94 (4.0-11.0) K/uL RBC 2.54 L (4.50-5.90) M/uL Hgb 9.2 L (13.0-17.0) g/dL Hct 28.1 L (38.0-50.0) % MCV 110.6 H (80.0-98.0) fL MCH 36.2 H (27.0-32.0) pg MCHC 32.7 (31.0-37.0) g/dL RDW Std Deviation 59.4 (28.0-62.0) fl RDW Coeff of Matt 15 (11.0-15.0) % Plt Count 180 (150-400) K/uL MPV 10.80 (7.40-12.00) fL Add Manual Diff YES Neutrophils % (Manual) 72 (48.0-80.0) % Band Neutrophils % 10 % Lymphocytes % (Manual) 10 L (16.0-40.0) % Monocytes % (Manual) 6 (0.0-15.0) % Basophils % (Manual) 1 (0.0-1.5) % Metamyelocytes % 1 % Nucleated RBC % 0.4 /100WBC Absolute Seg Neuts 7.2 Band Neutrophils # 1.0 Lymphocytes # (Manual) 1.0 Monocytes # (Manual) 0.6 Basophils # (Manual) 0 Absolute Metamyelocyte 0.1 Nucleated RBCs # 0 K/uL INR (0.86-1.11) Lactate (0.20-2.00) mmol/L Sodium 138 (136-146) mmol/L Potassium 3.8 (3.5-5.1) mmol/L Chloride 105 (98-110) mmol/L Carbon Dioxide 25 (21-31) mmol/L BUN 20 (6.0-23.0) mg/dL Creatinine 0.9 (0.6-1.5) mg/dL Est Cr Clr Drug Dosing TNP Estimated GFR (MDRD) > 60.0 ml/min Glucose 166 H (60-110) mg/dL POC Glucose (60-110) mg/dL Calcium 7.9 L (8.8-10.8) mg/dL Total Bilirubin 0.3 (0.1-1.5) mg/dL AST 20 (5-40) IU/L ALT 21 (8-54) IU/L Alkaline Phosphatase 100 (40-150) Ammonia (14-68) UG/DL CK-MB (CK-2) 3.8 (0-6.6) ng/ml Troponin I < 0.10 (0.0-0.29) NG/ML Total Protein 5.4 L (6.0-8.0) g/dL Albumin 2.9 L (3.4-4.8) g/dL Globulin 2.5 (2.0-3.5) g/dL Albumin/Globulin Ratio 1.2 L (1.3-2.8) Urine Color Urine Appearance Urine pH (5.0-8.0) Ur Specific Laurel (1.001-1.035) Urine Protein (NEGATIVE) mg/dL Urine Glucose (UA) (NEGATIVE) mg/dL Urine Ketones (NEGATIVE) mg/dL Urine Occult Blood (NEGATIVE) Urine Nitrite (NEGATIVE) Urine Bilirubin (NEGATIVE) Urine Urobilinogen (<2.0) EU/dL Ur Leukocyte Esterase (NEGATIVE) Urine RBC (0-2/HPF) Urine WBC (0-5/HPF) Ur Epithelial Cells (NONE-FEW) Urine Bacteria (NEGATIVE) 07/21/17 07/21/17 07/21/17 Range/Units 22:47 23:19 23:25 WBC (4.0-11.0) K/uL RBC (4.50-5.90) M/uL Hgb (13.0-17.0) g/dL Hct (38.0-50.0) % MCV (80.0-98.0) fL MCH (27.0-32.0) pg MCHC (31.0-37.0) g/dL RDW Std Deviation (28.0-62.0) fl RDW Coeff of Matt (11.0-15.0) % Plt Count (150-400) K/uL MPV (7.40-12.00) fL Add Manual Diff Neutrophils % (Manual) (48.0-80.0) % Band Neutrophils % % Lymphocytes % (Manual) (16.0-40.0) % Monocytes % (Manual) (0.0-15.0) % Basophils % (Manual) (0.0-1.5) % Metamyelocytes % % Nucleated RBC % /100WBC Absolute Seg Neuts Band Neutrophils # Lymphocytes # (Manual) Monocytes # (Manual) Basophils # (Manual) Absolute Metamyelocyte Nucleated RBCs # K/uL INR 1.18 H (0.86-1.11) Lactate (0.20-2.00) mmol/L Sodium (136-146) mmol/L Potassium (3.5-5.1) mmol/L Chloride (98-110) mmol/L Carbon Dioxide (21-31) mmol/L BUN (6.0-23.0) mg/dL Creatinine (0.6-1.5) mg/dL Est Cr Clr Drug Dosing Estimated GFR (MDRD) ml/min Glucose (60-110) mg/dL POC Glucose 173 H (60-110) mg/dL Calcium (8.8-10.8) mg/dL Total Bilirubin (0.1-1.5) mg/dL AST (5-40) IU/L ALT (8-54) IU/L Alkaline Phosphatase (40-150) Ammonia (14-68) UG/DL CK-MB (CK-2) (0-6.6) ng/ml Troponin I (0.0-0.29) NG/ML Total Protein (6.0-8.0) g/dL Albumin (3.4-4.8) g/dL Globulin (2.0-3.5) g/dL Albumin/Globulin Ratio (1.3-2.8) Urine Color YELLOW Urine Appearance CLEAR Urine pH 7.0 (5.0-8.0) Ur Specific Laurel 1.015 (1.001-1.035) Urine Protein 30 (NEGATIVE) mg/dL Urine Glucose (UA) NEGATIVE (NEGATIVE) mg/dL Urine Ketones NEGATIVE (NEGATIVE) mg/dL Urine Occult Blood NEGATIVE (NEGATIVE) Urine Nitrite NEGATIVE (NEGATIVE) Urine Bilirubin NEGATIVE (NEGATIVE) Urine Urobilinogen 0.2 (<2.0) EU/dL Ur Leukocyte Esterase NEGATIVE (NEGATIVE) Urine RBC 0-1 (0-2/HPF) Urine WBC 0-1 (0-5/HPF) Ur Epithelial Cells MODERATE (NONE-FEW) Urine Bacteria FEW (NEGATIVE) Meds: Medications Generic Name Dose Route Start Last Admin Trade Name Risa PRN Reason Stop Dose Admin Sodium Chloride 1,000 mls @ 999 mls/hr 07/21/17 23:20 07/21/17 23:20 Normal Saline IV 07/22/17 00:20 999 mls/hr .Bolus ONE Administration Discontinued Medications Generic Name Dose Route Start Last Admin Trade Name Freq PRN Reason Stop Dose Admin Dextrose/Water 25 ml 07/21/17 22:33 07/21/17 22:15 Dextrose 50% In Water IVPUSH 07/21/17 22:34 25 ml ONETIME ONE Administration Sodium Chloride 1,000 mls @ 999 mls/hr 07/21/17 22:32 07/21/17 22:20 Normal Saline IV 07/21/17 23:32 999 mls/hr .Bolus ONE Administration Departure - Departure Time of Disposition: 00:00 Disposition: Refer to Observation Condition: Good Clinical Impression: Weakness, Altered mental status - Discharge Information Referrals: John Doan MD [Primary Care Provider] - Forms: ED Department Discharge - My Orders Last 24 Hours: My Active Orders 07/21/17 22:26 Blood Culture x2 Reflex Set [OM.PC] Stat 07/21/17 22:27 EKG Documentation Completion [RC] STAT Chest 1V Frontal [CR] Stat Head wo Cont [CT] Stat 07/21/17 22:40 CULTURE BLOOD [BC] Stat 07/21/17 22:47 CULTURE BLOOD [BC] Stat 07/21/17 23:20 Sodium Chloride 0.9% [Normal Saline] 1,000 ml IV .Bolus 07/21/17 23:25 CULTURE URINE [RM] Stat - Assessment/Plan Last 24 Hours: My Active Orders 07/21/17 22:26 Blood Culture x2 Reflex Set [OM.PC] Stat 07/21/17 22:27 EKG Documentation Completion [RC] STAT Chest 1V Frontal [CR] Stat Head wo Cont [CT] Stat 07/21/17 22:40 CULTURE BLOOD [BC] Stat 07/21/17 22:47 CULTURE BLOOD [BC] Stat 07/21/17 23:20 Sodium Chloride 0.9% [Normal Saline] 1,000 ml IV .Bolus 07/21/17 23:25 CULTURE URINE [RM] Stat
[2017-07-21] MEDS ORDERED: Sodium Chloride 0.9% 1,000 ML IV ONE ×2 (22:32→23:20)
[2017-07-21] MEDS ORDERED: 50% Dextrose in Water 50 ML Syringe IVPUSH ONE (22:33)
[2017-07-21 23:14] LABS: CHLORIDE,CL 105 mmol/L (98-110); SODIUM,NA 138 mmol/L (136-146)
[2017-07-22] MEDS ORDERED: Acetaminophen 325 MG Tab PO PRN (01:28)
[2017-07-22] MEDS ORDERED: oxyCODONE 5 MG Tab PO PRN (01:28)
[2017-07-22] MEDS ORDERED: Sodium Chloride 0.9% 1,000 ML IV ONE (01:37)
[2017-07-22] MEDS: Sodium Chloride 0.9% 1,000 ML IV SCH ×3 (02:27→22:12)
[2017-07-22] MEDS: Insulin Aspart 100 Units/ML 3 ML Pen SUBCUT SCH ×5 (07:15→17:20)
[2017-07-22] MEDS ORDERED: Sodium Chloride 0.9% 500 ML IV ONE (07:28)
[2017-07-22 08:57] LABS: CHLORIDE,CL 111 mmol/L (98-110); SODIUM,NA 138 mmol/L (136-146)
--- NOTE | 2017-07-22 09:07 | PCM.HP ---
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 Yuri reports he was sitting around and just felt dizzy, so he checked his BS, it was 65, he was in the process of getting something to eat and felt worse, so he called EMS. Upon report, EMS check BS and it was 40 and blood pressure was low. Patient reportedly become unresponsive in the ambulance but a pulse remained. He was awake in the ED. He is alert this morning. Reporting he just finished 7 days of chemotherapy for leukemia. he has been otherwise feeling ok until last night. He reports this same thing happened 1 month ago and he was noted to be dehydrated. In the ED WBC 9,940, Hgb 9.2, BMP WNL. UA negative. CXR negative as well as Head CT was negative. he will be admitted observation for Hypoglycemia and hyptension. Lower Back Pain Score (Numeric/FACES): 7 - Related Data Allergies/Adverse Reactions: Allergies Allergy/AdvReac Type Severity Reaction Status Date / Time codeine Allergy Intermediate Confusion Verified 06/01/17 21:32 cologne Allergy Other Uncoded 06/01/17 21:32 Hayfever Allergy Other Uncoded 06/01/17 21:32 Home Medications: Home Meds Acetaminophen [Masophen] 1,000 mg PO TID PRN 12/11/14 [History] Aspirin 325 mg PO DAILY 12/11/14 [History] Gabapentin [Neurontin] 600 mg PO QID 12/11/14 [History] traMADol [Ultram] 50 mg PO QID 12/11/14 [History] Docusate Sodium [Colace] 100 mg PO BID 01/14/15 [History] Multivitamin [Multivitamins] 1 tab PO DAILY 01/14/15 [History] Sertraline [Zoloft] 50 mg PO DAILY 01/14/15 [History] Lisinopril 5 mg PO DAILY 11/05/16 [History] Baclofen 10 mg PO TID 06/02/17 [History] Cyanocobalamin (Vitamin B12) [Vitamin B12] 1,000 mcg IM Q30D 06/02/17 [History] Fluconazole [Diflucan] 200 mg PO Q7D 06/02/17 [History] Ondansetron HCl [Ondansetron] 8 mg PO TID PRN 06/02/17 [History] Prochlorperazine Maleate [Compazine] 10 mg PO Q4H PRN 06/02/17 [History] buPROPion HCl [Wellbutrin Xl] 300 mg PO DAILY 06/02/17 [History] Insulin Aspart [NovoLOG] 0 unit SUBCUT ASDIRECTED 07/22/17 [History] Past Medical History HEENT History: Reports: Cataract, Hard of Hearing Other HEENT History: wears glasses, has bilateral hearing aides Cardiovascular History: Reports: Angina, CAD, Hypertension, SC. Denies: Afib Respiratory History: Reports: COPD, Sleep Apnea Other Respiratory History: not currently using CPAP Gastrointestinal History: Reports: GERD, Hiatal Hernia Other Gastrointestinal History: Chronic Heartburn ("used to take Nexium, quit working so I stopped") Genitourinary History: Reports: BPH, UTI, Recurrent Other Genitourinary History: Enlarged prostate Musculoskeletal History: Reports: Amputation (bilateral AKA), Back Pain, Chronic , Fracture Other Musculoskeletal History: hx of fx right arm and left shoulder/ clavicle Neurological History: Reports: Concussion Other Neuro History: 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 Psychiatric History: Reports: Anxiety, Depression Endocrine/Metabolic History: Reports: Diabetes, Type II, Obesity/BMI 30+ Hematologic History: Reports: Anemia, Blood Transfusion(s) Other Hematologic History: easy bruising/bleeding Immunologic History: Reports: None Other Immunologic History: Positive MRSA Oncologic (Cancer) History: Reports: Leukemia, Other (See Below) Other Oncologic History: removal of skin cancer on forehead x2, "possible leukemia" Dermatologic History: Reports: Other (See Below) Other Dermatologic History: has dry skin, "pimple like sores to stumps and buttocks" not open or draining, states he "thinks he has MRSA" as he has had nasal swab in the past and was told it was positive - Infectious Disease History Infectious Disease History: Reports: MRSA - Past Surgical History Head Surgeries/Procedures: Reports: None Cardiovascular Surgical History: Reports: Coronary Artery Stent Social & Family History - Family History Family Medical History: Noncontributory Cardiac: Reports: None - Tobacco Use Smoking Status *Q: Former Smoker Years of Tobacco use: 37 Used Tobacco, but Quit: No Month Tobacco Last Used: 30 yrs ago Second Hand Smoke Exposure: No - Caffeine Use Caffeine Use: Reports: Coffee, Energy Drinks, Soda, Other Other Caffeine Use: diet soda - Alcohol Use Days Per Week of Alcohol Use: 0 Number of Drinks Per Day: 0 Total Drinks Per Week: 0 - Recreational Drug Use Recreational Drug Use: No Drug Use in Last 12 Months: No H&P Review of Systems - Review of Systems: Review Of Systems: See Below General: Denies: Fever, Chills, Malaise HEENT: Reports: No Symptoms. Denies: Headaches, Sinus Congestion, Sore Throat Pulmonary: Reports: No Symptoms. Denies: Shortness of Breath, Wheezing, Cough, Sputum Cardiovascular: Reports: Lightheadedness. Denies: Chest Pain, Palpitations, Dyspnea on Exertion, Syncope Gastrointestinal: Reports: Constipation. Denies: Abdominal Pain, Black Stool, Bloody Stool, Diarrhea, Nausea, Vomiting Genitourinary: Reports: No Symptoms. Denies: Dysuria, Frequency, Burning, Pain Musculoskeletal: Reports: Other (phantom limb pain bilaterally, baseline) Skin: Reports: No Symptoms Psychiatric: Reports: No Symptoms Neurological: Reports: No Symptoms Hematologic/Lymphatic: Reports: No Symptoms Immunologic: Reports: No Symptoms Exam - Exam Exam: See Below - Vital Signs Vital Signs: Last Vital Signs Temp 98.7 F 07/22/17 08:00 Pulse 72 07/22/17 08:00 Resp 22 H 07/22/17 08:00 BP 123/58 L 07/22/17 08:00 Pulse Ox 97 07/22/17 08:00 Weight: 79 kg - Exam General: Alert, Oriented, Cooperative HEENT: Conjunctiva Clear, Hearing Intact, Mucosa Moist & [place], Nares Patent, Posterior Pharynx Clear, Pupils Reactive Neck: Supple, Trachea Midline, 2 Lungs: Clear to Auscultation, Normal Respiratory Effort Cardiovascular: Regular Rate, Regular Rhythm, Normal S1, Normal S2. No: Systolic Murmur GI/Abdominal Exam: Normal Bowel Sounds, Soft, Non-Tender, No Organomegaly, No Distention, No Abnormal Bruit, No Mass, Pelvis Stable Extremities: Other (bilateral AKA, stump skin intact. ) Neuro Extensive - Mental Status: Alert, Oriented x3, Normal Mood/Affect, Normal Cognition Neuro Extensive - Motor, Sensory, Reflexes: CN II-XII Intact, Normal Reflexes. No: Normal Gait (does not ambulate, chair bound) Psychiatric: Alert, Normal Affect, Normal Mood - Patient Data Lab Results Last 24 hrs: Laboratory Results - last 24 hr 07/22/17 07/22/17 07/22/17 Range/Units 01:10 06:46 08:32 WBC 4.05 (4.0-11.0) K/uL RBC 2.31 L (4.50-5.90) M/uL Hgb 8.3 L (13.0-17.0) g/dL Hct 25.9 L (38.0-50.0) % MCV 112.1 H (80.0-98.0) fL MCH 35.9 H (27.0-32.0) pg MCHC 32.0 (31.0-37.0) g/dL RDW Std Deviation 59.5 (28.0-62.0) fl RDW Coeff of Matt 15 (11.0-15.0) % Plt Count 144 L (150-400) K/uL MPV 10.80 (7.40-12.00) fL Neut % (Auto) 68.8 (48.0-80.0) % Lymph % (Auto) 20.7 (16.0-40.0) % [place]key % (Auto) 10.1 (0.0-15.0) % Eos % (Auto) 0.2 (0.0-7.0) % Baso % (Auto) 0.2 (0.0-1.5) % Neut # (Auto) 2.8 (1.4-5.7) K/uL Lymph # (Auto) 0.8 (0.6-2.4) K/uL [place]key # (Auto) 0.4 (0.0-0.8) K/uL Eos # (Auto) 0.0 (0.0-0.7) K/uL Baso # (Auto) 0.0 (0.0-0.1) K/uL Nucleated RBC % 0.0 /100WBC Nucleated RBCs # 0 K/uL Sodium (136-146) mmol/L Potassium (3.5-5.1) mmol/L Chloride (98-110) mmol/L Carbon Dioxide (21-31) mmol/L BUN (6.0-23.0) mg/dL Creatinine (0.6-1.5) mg/dL Est Cr Clr Drug Dosing mL/min Estimated GFR (MDRD) ml/min Glucose (60-110) mg/dL POC Glucose 217 H 262 H (60-110) mg/dL Calcium (8.8-10.8) mg/dL 07/22/17 Range/Units 08:32 WBC (4.0-11.0) K/uL RBC (4.50-5.90) M/uL Hgb (13.0-17.0) g/dL Hct (38.0-50.0) % MCV (80.0-98.0) fL MCH (27.0-32.0) pg MCHC (31.0-37.0) g/dL RDW Std Deviation (28.0-62.0) fl RDW Coeff of Matt (11.0-15.0) % Plt Count (150-400) K/uL MPV (7.40-12.00) fL Neut % (Auto) (48.0-80.0) % Lymph % (Auto) (16.0-40.0) % [place] % (Auto) (0.0-15.0) % Eos % (Auto) (0.0-7.0) % Baso % (Auto) (0.0-1.5) % Neut # (Auto) (1.4-5.7) K/uL Lymph # (Auto) (0.6-2.4) K/uL [place]key # (Auto) (0.0-0.8) K/uL Eos # (Auto) (0.0-0.7) K/uL Baso # (Auto) (0.0-0.1) K/uL Nucleated RBC % /100WBC Nucleated RBCs # K/uL Sodium 138 (136-146) mmol/L Potassium 4.4 (3.5-5.1) mmol/L Chloride 111 H (98-110) mmol/L Carbon Dioxide 23 (21-31) mmol/L BUN 17 (6.0-23.0) mg/dL Creatinine 0.7 (0.6-1.5) mg/dL Est Cr Clr Drug Dosing 64.48 mL/min Estimated GFR (MDRD) > 60.0 ml/min Glucose 204 H (60-110) mg/dL POC Glucose (60-110) mg/dL Calcium 7.6 L (8.8-10.8) mg/dL Result Diagrams: 07/22/17 08:32 07/22/17 08:32 *Q Meaningful Use (ADM) - VTE *Q VTE Criteria *Q: - Stroke *Q Stroke Criteria *Q: - AMI *Q AMI Criteria *Q: - Problem List (1) Hypotension SNOMED Code(s): 40827502 ICD Code: I95.9 - HYPOTENSION, UNSPECIFIED Status: Acute Current Visit: No Qualifiers: Hypotension type: unspecified hypotension type Qualified Code(s): I95.9 - Hypotension, unspecified (2) Hypoglycemia SNOMED Code(s): 204715230 ICD Code: E16.2 - HYPOGLYCEMIA, UNSPECIFIED Status: Acute Current Visit: No (3) Dehydration SNOMED Code(s): 91986499 ICD Code: E86.0 - DEHYDRATION Status: Acute Current Visit: No (4) CAD (coronary artery disease) SNOMED Code(s): 25547623 ICD Code: I25.10 - ATHSCL HEART DISEASE OF [place] CORONARY ARTERY W/O ANG PCTRS Status: Chronic Current Visit: Yes Qualifiers: Coronary Disease-Associated Artery/Lesion type: [place] artery [place] vs. transplanted heart: [place] heart Associated angina: without angina Qualified Code(s): I25.10 - Atherosclerotic heart disease of [place] coronary artery without angina pectoris (5) HTN (hypertension) SNOMED Code(s): 78137775 ICD Code: I10 - ESSENTIAL (PRIMARY) HYPERTENSION Status: Chronic Current Visit: Yes Qualifiers: Hypertension type: essential hypertension Qualified Code(s): I10 - Essential (primary) hypertension (6) Above knee amputation of left lower extremity SNOMED Code(s): 554129058, 255970350 ICD Code: Z89.612 - ACQUIRED ABSENCE OF LEFT LEG ABOVE KNEE Status: Chronic Current Visit: Yes (7) Above knee amputation of right lower extremity SNOMED Code(s): 798751415, 650256599 ICD Code: Z89.611 - ACQUIRED ABSENCE OF RIGHT LEG ABOVE KNEE Status: Chronic Current Visit: Yes (8) Phantom limb pain SNOMED Code(s): 701298806, 2828203460418 ICD Code: G54.6 - PHANTOM LIMB SYNDROME WITH PAIN Status: Chronic Current Visit: Yes (9) Leukemia SNOMED Code(s): 79894012 ICD Code: C95.90 - LEUKEMIA, UNSPECIFIED NOT HAVING ACHIEVED REMISSION Status: Chronic Current Visit: Yes (10) Status post skin flap graft SNOMED Code(s): 470861130, 025003579, 924400952, 077014518 ICD Code: Z94.5 - SKIN TRANSPLANT STATUS Status: Chronic Current Visit: No (11) Uncontrolled diabetes mellitus SNOMED Code(s): 172207823, 866672045 ICD Code: E11.65 - TYPE 2 DIABETES MELLITUS WITH HYPERGLYCEMIA Status: Chronic Current Visit: No Qualifiers: Diabetes mellitus type: type 2 Diabetes mellitus complication status: with skin complications Diabetes mellitus complication detail: with other skin complication Diabetes mellitus chcf insulin use: with chcf use Qualified Code(s): E11.628 - Type 2 diabetes mellitus with other skin complications; E11.65 - Type 2 diabetes mellitus with hyperglycemia; Z79.4 - rodent exterminator (current) use of insulin Problem List Initiated/Reviewed/Updated: Yes Orders Last 24hrs: Active Orders 24 hr Category Date Time Status Patient Status [ADT] Routine ADT 07/22/17 01:42 Active Blood Glucose Check, Bedside [RC] WITHMEALSANDBED Care 07/22/17 01:28 Active Communication Order [RC] ROUTINE Care 07/22/17 01:28 Active [place] [employer] Diet [DIET] Diet 07/22/17 Breakfast Active Acetaminophen [Tylenol] Med 07/22/17 01:28 Active 650 mg PO Q4H PRN Insulin Aspart [NovoLOG] Med 07/22/17 07:30 Active See Protocol SUBCUT ACBED Morphine Med 07/22/17 01:28 Active 2 mg IVPUSH Q2H PRN Sodium Chloride 0.9% [Normal Saline] 1,000 ml Med 07/22/17 01:30 Active IV ASDIRECTED oxyCODONE Med 07/22/17 01:28 Active 5 mg PO Q4H PRN Medication Orders Acetaminophen (Tylenol) 650 mg PO Q4H PRN PRN Reason: Pain (mild 1-3) Sodium Chloride (Normal Saline) 1,000 mls @ 75 mls/hr IV ASDIRECTED [facility] Last Admin: 07/22/17 08:42 Dose: 75 mls/hr Infusion: 07/22/17 08:42 Dose: 75 mls/hr Admin: 07/22/17 02:27 Dose: 75 mls/hr Insulin Aspart (Novolog) 0 unit SUBCUT ACBED [facility] PRN Reason: Protocol Last Admin: 07/22/17 07:15 Dose: 6 units Morphine Sulfate (Morphine) 2 mg IVPUSH Q2H PRN PRN Reason: Pain (severe 7-10) Oxycodone HCl (Oxycodone) 5 mg PO Q4H PRN PRN Reason: Pain (moderate 4-6) Last Admin: 07/22/17 02:24 Dose: 5 mg Assessment/Plan Comment:: This 76 year old male admitted with dehydration, hypotension and hypoglycemia 1. Dehydration: Likely cause of hypotension. Was given bolus of 500 ml NS this am. Will monitor. Hold BP medications. 2. Hypoglycemia: Had DM educator interrogate pump and meter. BS are well controlled with a few lows. Patient reports giving himself some much insulin for expected amount of carbs, then not eating that entire amount. Educated to bolus after he eats to ensure he is covering for the right amount of carbs. Continue Insulin pump now, monitor closely. 3. HTN: hold home meds and monitor 4. CAD; Continue ASA 5 Phantom limb pain: Continue Gabapentin and Baclofen and Tramadol. Dispo: 1-2 days pending improvement.
[2017-07-22] MEDS: Morphine 2 MG/ML Syringe IVPUSH PRN ×2 (09:42→22:16)
--- NOTE | 2017-07-22 10:20 | CT ---
EXAM DATE: 07/22/17 PATIENT'S AGE: 76 Patient: HEATHER MEHTA Facility: [place], [place] Site . Site : 1940 Study: CT Head wo cont [id number]/13/2017 11:14:33 PM Ordering Physician: Sobeida Olmedo Final Report: INDICATION: Change in mental status TECHNIQUE: CT head without contrast. COMPARISON: 03/20/2013 FINDINGS: CSF spaces: Within normal limits for age. Brain parenchyma: The ang[place]-white differentiation is normal. No sign of mass, hemorrhage, or midline shift. Skull base and calvarium: The visualized paranasal sinuses and mastoid air cells demonstrate no acute or significant findings. The visualized orbits are grossly unremarkable. No skull fractures. IMPRESSION: Unremarkable noncontrast head CT. Dictated by Rikki Hernadez MD @ 07/21/2017 11:38:36 PM Dictated by: Rikki Hernadez MD @ 07/21/2017 23:38:43 (Electronic Signature) Report Signed by Proxy. [facility]
--- NOTE | 2017-07-22 10:20 | CR ---
EXAM DATE: 07/22/17 PATIENT'S AGE: 76 Patient: HEATHER MEHTA Facility: [place], [place] Site . Site : 1940 Study: XRay Chest [id number]/13/2017 11:24:48 PM Ordering Physician: Sobeida Olmedo Final Report: INDICATION: Altered level of consciousness. TECHNIQUE: Chest radiograph 1 view COMPARISON: 06/01/2017. FINDINGS: Lung volumes remain diminished. Right subclavian Port-A-Cath, tip position unchanged. Heart size mildly enlarged, similar to prior study. No new focal lung opacity. IMPRESSION: 1. Low lung volumes. No acute abnormality. Improved aeration at the right lung base from 06/01/2017. Dictated by Al Lua MD @ 07/21/2017 11:43:57 PM Dictated by: Al Lua MD @ 07/21/2017 23:44:03 (Electronic Signature) Report Signed by Proxy. [facility]ie
[2017-07-22] MEDS: Gabapentin 300 MG Cap PO SCH ×3 (12:21→23:48)
[2017-07-22] MEDS: traMADol 50 MG Tab PO SCH ×3 (12:22→23:48)
[2017-07-22] MEDS: Baclofen 10 MG Tab PO SCH ×2 (13:33→22:01)
[2017-07-22] MEDS: Docusate Sodium 100 MG Cap PO SCH (22:00)
[2017-07-23] MEDS: Morphine 2 MG/ML Syringe IVPUSH PRN (02:00)
[2017-07-23] MEDS: Gabapentin 300 MG Cap PO SCH ×2 (05:30→11:33)
[2017-07-23] MEDS: Baclofen 10 MG Tab PO SCH (05:31)
[2017-07-23] MEDS: traMADol 50 MG Tab PO SCH ×2 (05:31→11:33)
[2017-07-23] MEDS: Insulin Aspart 100 Units/ML 3 ML Pen SUBCUT SCH (07:40)
[2017-07-23] MEDS ORDERED: Multivitamins with Iron/Calcium/Folic Acid/Minerals Tab PO SCH (09:00)
[2017-07-23] MEDS ORDERED: Aspirin 325 MG Tab PO SCH (09:00)
[2017-07-23] MEDS ORDERED: buPROPion 150 MG Tab.ER PO SCH (09:00)
[2017-07-23] MEDS ORDERED: Sertraline 50 MG Tab PO SCH (09:00)
--- NOTE | 2017-07-23 09:28 | PCM.DCSUM1 ---
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 Yuri reports he was sitting around and just felt dizzy , so he checked his BS, it was 65, he was in the process of getting something to eat and felt worse, so he called EMS. Upon report, EMS check BS and it was 40 and blood pressure was low. Patient reportedly become unresponsive in the ambulance but a pulse remained. He was awake in the ED. He was alert that morning. Reporting he just finished 7 days of chemotherapy for leukemia. he has been otherwise feeling ok until last night. He reports this same thing happened 1 month ago and he was noted to be dehydrated. In the ED WBC 9,940, Hgb 9.2, BMP WNL. UA negative. CXR negative as well as Head CT was negative. He was admitted observation for Hypoglycemia and hypotension. - Discharge Data Discharge Date: 07/23/17 Discharge Disposition: Home, Self-Care 01 Condition: Good - Discharge Diagnosis/Problem(s) (1) Hypotension SNOMED Code(s): 57555469 ICD Code: I95.9 - HYPOTENSION, UNSPECIFIED Status: Resolved Current Visit : No Qualifiers: Hypotension type: unspecified hypotension type Qualified Code(s): I95.9 - Hypotension, unspecified (2) Hypoglycemia SNOMED Code(s): 564877258 ICD Code: E16.2 - HYPOGLYCEMIA, UNSPECIFIED Status: Resolved Current Visit: No (3) Dehydration SNOMED Code(s): 87935626 ICD Code: E86.0 - DEHYDRATION Status: Resolved Current Visit: No (4) CAD (coronary artery disease) SNOMED Code(s): 59094470 ICD Code: I25.10 - ATHSCL HEART DISEASE OF [place] CORONARY ARTERY W/O ANG PCTRS Status: Chronic Current Visit: Yes Qualifiers: Coronary Disease-Associated Artery/Lesion type: [place] artery [place] vs. transplanted heart: [place] heart Associated angina: without angina Qualified Code(s): I25.10 - Atherosclerotic heart disease of [place] coronary artery without angina pectoris (5) HTN (hypertension) SNOMED Code(s): 12839700 ICD Code: I10 - ESSENTIAL (PRIMARY) HYPERTENSION Status: Chronic Current Visit: Yes Qualifiers: Hypertension type: essential hypertension Qualified Code(s): I10 - Essential (primary) hypertension (6) Above knee amputation of left lower extremity SNOMED Code(s): 615916918, 587180781 ICD Code: Z89.612 - ACQUIRED ABSENCE OF LEFT LEG ABOVE KNEE Status: Chronic Current Visit: Yes (7) Above knee amputation of right lower extremity SNOMED Code(s): 205175981, 426938458 ICD Code: Z89.611 - ACQUIRED ABSENCE OF RIGHT LEG ABOVE KNEE Status: Chronic Current Visit: Yes (8) Phantom limb pain SNOMED Code(s): 805076830, 8224114381637 ICD Code: G54.6 - PHANTOM LIMB SYNDROME WITH PAIN Status: Chronic Current Visit: Yes (9) Leukemia SNOMED Code(s): 90616888 ICD Code: C95.90 - LEUKEMIA, UNSPECIFIED NOT HAVING ACHIEVED REMISSION Status: Chronic Current Visit: Yes (10) Status post skin flap graft SNOMED Code(s): 648445005, 317889871, 997949550, 810528374 ICD Code: Z94.5 - SKIN TRANSPLANT STATUS Status: Chronic Current Visit: No (11) Uncontrolled diabetes mellitus SNOMED Code(s): 003134723, 097429644 ICD Code: E11.65 - TYPE 2 DIABETES MELLITUS WITH HYPERGLYCEMIA Status: Chronic Current Visit: No Qualifiers: Diabetes mellitus type: type 2 Diabetes mellitus complication status: with skin complications Diabetes mellitus complication detail: with other skin complication Diabetes mellitus snf insulin use: with termite renewal inspector use Qualified Code(s): E11.628 - Type 2 diabetes mellitus with other skin complications; E11.65 - Type 2 diabetes mellitus with hyperglycemia; Z79.4 - termite helper (current) use of insulin - Patient Summary/Data Consults: Consultations 07/22/17 10:32 Consult to Cloud Solutions Architect [Consult to Diabetic Nurse Specialist] [CONS] Routine - Patient Instructions Diet: Diabetic Diet Activity: As Tolerated Showering/Bathing: May Shower Notify Provider of: Fever, Increased Pain, Swelling and Redness, Drainage, Nausea and/or Vomiting Other/Special Instructions: Encouraged to bolus insulin after meals, to ensure adequate dosing for carbs consumed. - Discharge Plan Home Medications: Home Meds Acetaminophen [Masophen] 1,000 mg PO TID PRN 12/11/14 [History] Aspirin 325 mg PO DAILY 12/11/14 [History] Gabapentin [Neurontin] 600 mg PO QID 12/11/14 [History] traMADol [Ultram] 50 mg PO QID 12/11/14 [History] Docusate Sodium [Colace] 100 mg PO BID 01/14/15 [History] Multivitamin [Multivitamins] 1 tab PO DAILY 01/14/15 [History] Sertraline [Zoloft] 50 mg PO DAILY 01/14/15 [History] Lisinopril 5 mg PO DAILY 11/05/16 [History] Baclofen 10 mg PO TID 06/02/17 [History] Cyanocobalamin (Vitamin B12) [Vitamin B12] 1,000 mcg IM Q30D 06/02/17 [History] Fluconazole [Diflucan] 200 mg PO Q7D 06/02/17 [History] Ondansetron HCl [Ondansetron] 8 mg PO TID PRN 06/02/17 [History] Prochlorperazine Maleate [Compazine] 10 mg PO Q4H PRN 06/02/17 [History] buPROPion HCl [Wellbutrin Xl] 300 mg PO DAILY 06/02/17 [History] Insulin Aspart [NovoLOG] 0.375 unit SUBCUT Q1H MDD 16.25 units Q24H 07/22/17 [ History] Patient Handouts: Hypoglycemia, [id number] Forms: ED Department Discharge Referrals: John Doan MD [Primary Care Provider] - 07/29/17 2:30 pm - Discharge Summary/Plan Comment DC Time >30 min.: No Discharge Summary/Plan Comment: Discharge Diagnoses: Hypoglycemia- resolved Hypotension-resolved Dehydration- resolved bilateral AKA Leukoemia DM Type 2 CAD HTN Han was admitted and treated with IVFs. We had his insulin pump and interrogated by DM educator. Reports overall BS are very good. The only change she would recommend would to bolus insulin with meals after he eats. He reports he tends to calculate his carbs, then bolus and eat. Most times he does not finish his meal and ends up over treating BS. To avoid hypoglycemia, he was encouraged to instead bolus after and he has agreed to that. Dehydration maybe secondary to recent chemotherapy treatments. He was encouraged to continue to have good po intake. Today is he requesting discharge and is feeling much better. He is to follow up with PCP in 1 week and continue follow up with Oncology as planned. He is to return to clinic or ED if concerns should arise. He will be continued on all home medications as previously prescribed. - General Info Date of Service: 07/23/17 Admission Dx/Problem (Free Text: Admission Diagnosis/Problem Admission Diagnosis/Problem Hypoglycemia and hypotension Subjective Update: Reports feeling really well this morning and asking to go home. He reports pain is controlled with home regimen. No chest pain or SOB. No urinary concerns or abdominal pain. Functional Status: Reports: Pain Controlled, Tolerating Diet, Urinating - Review of Systems General: Reports: No Symptoms. Denies: Fever HEENT: Reports: No Symptoms. Denies: Headaches, Sore Throat, Rhinitis, Visual Changes Pulmonary: Reports: No Symptoms. Denies: Shortness of Breath, Cough, Sputum Cardiovascular: Reports: No Symptoms. Denies: Chest Pain, Edema Gastrointestinal: Reports: No Symptoms. Denies: Abdominal Pain, Nausea, Vomiting Genitourinary: Reports: No Symptoms. Denies: Dysuria, Frequency, Burning, Pain Neurological: Reports: Other (phantom limb pain, baseline.) Psychiatric: Reports: No Symptoms - Patient Data Vitals - Most Recent: Last Vital Signs Temp 98.4 F 07/23/17 08:00 Pulse 64 07/23/17 08:00 Resp 16 07/23/17 08:00 BP 107/58 L 07/23/17 08:00 Pulse Ox 98 07/23/17 08:00 Weight - Most Recent: 79 kg I&O - Last 24 hours: Intake & Output 07/22/17 07/23/17 07/23/17 22:59 06:59 14:59 Intake Total 840 2011 Output Total 1125 1930 Balance -285 82 Lab Results - Last 24 hrs: Laboratory Results - last 24 hr 07/22/17 07/22/17 07/22/17 Range/Units 11:46 12:25 14:28 POC Glucose 53 L 52 L 75 (60-110) mg/dL 07/22/17 07/22/17 07/22/17 Range/Units 16:13 18:38 21:15 POC Glucose 74 136 H 154 H (60-110) mg/dL Med Orders - Current: Current Medications Acetaminophen (Tylenol) 650 mg PO Q4H PRN PRN Reason: Pain (mild 1-3) Aspirin (Aspirin) 325 mg PO DAILY [facility] Baclofen (Lioresal) 10 mg PO TID [facility] Last Admin: 07/23/17 05:31 Dose: 10 mg Bupropion HCl (Wellbutrin Xl) 300 mg PO DAILY [facility] Docusate Sodium (Colace) 100 mg PO BID [facility] Last Admin: 07/22/17 22:00 Dose: 100 mg Gabapentin (Neurontin) 600 mg PO QID [facility] Last Admin: 07/23/17 05:30 Dose: 600 mg Sodium Chloride (Normal Saline) 1,000 mls @ 75 mls/hr IV ASDIRECTED [facility] Last Admin: 07/22/17 22:12 Dose: 75 mls/hr Morphine Sulfate (Morphine) 2 mg IVPUSH Q2H PRN PRN Reason: Pain (severe 7-10) Last Admin: 07/23/17 02:00 Dose: 2 mg Multivitamins/Minerals (Thera M Plus) 1 tab PO DAILY [facility] Oxycodone HCl (Oxycodone) 5 mg PO Q4H PRN PRN Reason: Pain (moderate 4-6) Last Admin: 07/22/17 02:24 Dose: 5 mg Sertraline HCl (Zoloft) 50 mg PO DAILY [facility] Tramadol HCl (Ultram) 50 mg PO QID [facility] Last Admin: 07/23/17 05:31 Dose: 50 mg Discontinued Medications Dextrose/Water (Dextrose 50% In Water) 25 ml IVPUSH ONETIME ONE Stop: 07/21/17 22:34 Last Admin: 07/21/17 22:15 Dose: 25 ml Dextrose/Water (Dextrose 50% In Water) Confirm Administered Dose 50 ml .ROUTE .STK-MED ONE Stop: 07/21/17 22:16 Last Admin: 07/22/17 22:53 Dose: Not Given Sodium Chloride (Normal Saline) 1,000 mls @ 999 mls/hr IV .Bolus ONE Stop: 07/21/17 23:32 Last Admin: 07/21/17 22:20 Dose: 999 mls/hr Sodium Chloride (Normal Saline) 1,000 mls @ 999 mls/hr IV .Bolus ONE Stop: 07/22/17 00:20 Last Admin: 07/21/17 23:20 Dose: 999 mls/hr Sodium Chloride (Normal Saline) 1,000 mls @ 999 mls/hr IV ONETIME ONE Stop: 07/22/17 02:37 Last Infusion: 07/22/17 02:26 Dose: 999 mls/hr Sodium Chloride (Normal Saline) 500 mls @ 999 mls/hr IV .Bolus ONE Stop: 07/22/17 07:58 Last Admin: 07/22/17 08:01 Dose: 999 mls/hr Insulin Aspart (Novolog) 0 unit SUBCUT ACBED JEWELL PRN Reason: Protocol Last Admin: 07/22/17 17:07 Dose: Not Given Insulin Aspart (Novolog) 0 unit SUBCUT TIDAC [facility] PRN Reason: Protocol Last Admin: 07/23/17 07:40 Dose: 2 units - Exam General: Reports: Alert, Oriented, Cooperative, No Acute Distress Lungs: Reports: Clear to Auscultation, Normal Respiratory Effort Cardiovascular: Reports: Regular Rate, Regular Rhythm GI/Abdominal Exam: Normal Bowel Sounds, Soft, Non-Tender, No Organomegaly, No Distention, No Abnormal Bruit, No Mass, Pelvis Stable Extremities: Normal Inspection, Normal Range of Motion, Non-Tender, No Pedal Edema, Normal Capillary Refill Skin: Reports: Warm, Dry, Intact Neurological: Reports: No New Focal Deficit Psy/Mental Status: Reports: Alert, Normal Affect, Normal Mood *Q Meaningful Use (DIS) - VTE *Q VTE Criteria *Q: - Stroke *Q Stroke Criteria *Q: - AMI *Q AMI Criteria *Q:
[2017-07-23] MEDS: Docusate Sodium 100 MG Cap PO SCH (09:58)
[2017-07-23 11:17] VITALS: BP 112/62
== END 2017-07-23 12:45 | disposition home or self-care (01) ==
LOC: MW.ED 22:14 → UNDOADMOB 07-22 00:02 → MW.MS 07-22 00:02
PROVIDERS: ADMIT Internal Medicine; ATTEND Internal Medicine
DX: I95.9 Hypotension, unspecified (principal); E16.2 Hypoglycemia, unspecified; E86.0 Dehydration; I25.10 Atherosclerotic heart disease of native coronary artery without angina pectoris; I10 Essential (primary) hypertension; Z89.611 Acquired absence of right leg above knee; Z89.612 Acquired absence of left leg above knee; G54.9 Nerve root and plexus disorder, unspecified; C95.90 Leukemia, unspecified not having achieved remission; Z94.5 Skin transplant status; E11.65 Type 2 diabetes mellitus with hyperglycemia; Z79.82 Long term (current) use of aspirin; Z79.899 Other long term (current) drug therapy; Z79.4 Long term (current) use of insulin; I25.2 Old myocardial infarction; J44.9 Chronic obstructive pulmonary disease, unspecified; G47.30 Sleep apnea, unspecified; K21.9 Gastro-esophageal reflux disease without esophagitis; K44.9 Diaphragmatic hernia without obstruction or gangrene; N40.0 Benign prostatic hyperplasia without lower urinary tract symptoms; F32.9 Major depressive disorder, single episode, unspecified; F41.9 Anxiety disorder, unspecified; Z87.891 Personal history of nicotine dependence
CPT/HCPCS: 36415; 70450; 71010; 80048; 80053; 81001; 82140; 82553; 82962; 83605; 84484; 85025; 85610; 87040; 87086; 93005; 96361; 96374; 99285; A9270; J1642; J1815; J2270; J7040; J7060; 96375; 96376; 99283; G0378